=== PATIENT | female | born 2000 | race Caucasian/White ===

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

== ENCOUNTER 2022-01-04 17:19 | Outpatient (CLI) | payer OTHER, SELFPAY ==
[2022-01-04 17:28] VITALS: BMI 33.0
[2022-01-04 18:21] LABS: Microscopic, Urine URINE MICROSCOPIC (MICROSCOPIC)
[2022-01-04 18:28] LABS: Appearance,Urine SL CLOUDY (Clear); Bilirubin,Urine Negative (Negative); Blood, Urine Negative (Negative); Color,Urine YELLOW (Yellow); Glucose,Urine (UA) Negative (Negative); Ketones,Urine Negative (Negative); Leukocyte Esterase,Urine Negative (Negative); Nitrate,Urine Negative (Negative); Protein,Urine Negative (Negative); Specific Gravity, Urine 1.025 (1.005-1.030); Urobilinogen,Urine 0.2 EU/dl (0.2)
[2022-01-04 18:39] LABS: Amphetamine/Metha Screen,Urine Negative ng/ml (<1000); Barbiturates Screen,Urine Negative ng/ml (<200)
[2022-01-04 18:40] LABS: Benzodiazepines Screen,Urine Negative ng/ml (<200)
[2022-01-04 18:41] LABS: Cannabinoid Screen,Urine Negative ng/ml (<50); Cocaine Screen,Urine Negative ng/ml (<300)
[2022-01-04 18:42] LABS: Methadone Screen,Urine Negative ng/ml (<300); Opiate Screen,Urine Negative ng/ml (<300)
[2022-01-04 18:43] LABS: Phencyclidine Screen,Urine Negative ng/ml (<25)
[2022-01-04 18:44] LABS: Amorphous Sediment,Urine 1+ /lpf; Bacteria,Urine 1+ /lpf; Squamous Epithelial Cell,Urine Occasional #/hpf (0-5)
== END 2022-01-04 18:25 | disposition home or self-care (01) ==
LOC: OBOUT 17:22 → OB 17:23
PROVIDERS: PCP Internal Medicine Adolescent Medicine; Visit Provider Obstetrics & Gynecology
DX: O36.8130 Decreased fetal movements, third trimester, not applicable or unspecified (principal); Z3A.28 28 weeks gestation of pregnancy
CPT/HCPCS: 80305; 81001

== ENCOUNTER → 2022-01-12 09:46 | Outpatient (CLI) | payer OTHER, SELFPAY ==
[2022-01-12 10:39] LABS: Glucose,Fasting 80 mg/dl (74-100)
[2022-01-12 12:02] LABS: Glucose 1 Hour 102 mg/dL (74-100)
== END ==
PROVIDERS: Visit Provider Nurse Practitioner Obstetrics & Gynecology
DX: Z34.90 Encounter for supervision of normal pregnancy, unspecified, unspecified trimester (principal)
CPT/HCPCS: 36415; 82951

== ENCOUNTER → 2022-02-02 09:12 | Outpatient (CLI) | payer OTHER, SELFPAY ==
--- NOTE | 2022-02-02 09:12 | US_ITS ---
FINAL REPORT CLINICAL HISTORY: decreased movement FINDINGS: There is a single live intrauterine gestation. Presentation is cephalic. Placenta is anterior, grade 1-2. breathing and movement is noted. Heart rate is 133 beats per minute. AMNIOTIC FLUID: Appropriate amount. YVONNE: 9.78 cm MEASUREMENTS: ULTRASOUND AGE: 33 weeks 3 days. GESTATION AGE: 32 weeks 3 days. ESTIMATED WEIGHT: 2100g. GROWTH PERCENTILE: 59% BPD: 8.5 cm corresponding with 34 weeks 1 days. OFD: 10.8 cm corresponding with 34 weeks 4 days. HC: 30.5 cm corresponding with 34 weeks 0 days. AC: 29.2 cm corresponding with 33 weeks 2 days. FL: 6.2 cm corresponding with 32 weeks 1 days. HC/AC: 1.04 CI: 78% FL/BPD: 73% FL/AC: 21% Biophysical profile: Breathin/2 Movement: 2/2 Tone: 2/2 Fluid volume: 2/2 Total: 04/03 IMPRESSION: Single living IUP with an ultrasound age of 33 weeks 3 days. YVONNE of 9.78 cm biophysical profile: 04/03 Reviewed, Interpreted and Dictated by Michael Mcgee III, MD Transcribed by Eileen Ruiz Authenticated and . [facility]
== END ==
LOC: RAD 09:12
PROVIDERS: PCP Internal Medicine Adolescent Medicine; Visit Provider Nurse Practitioner Obstetrics & Gynecology
DX: O36.8190 Decreased fetal movements, unspecified trimester, not applicable or unspecified (principal); O36.5990 Maternal care for other known or suspected poor fetal growth, unspecified trimester, not applicable or unspecified
CPT/HCPCS: 76816; 76819; 76820

== ENCOUNTER → 2022-02-07 16:57 | Outpatient (CLI) | payer OTHER, SELFPAY | PROVIDERS: Visit Provider Nurse Practitioner Obstetrics & Gynecology | DX: O23.40 Unspecified infection of urinary tract in pregnancy, unspecified trimester (principal); Z3A.34 34 weeks gestation of pregnancy | CPT/HCPCS: 87086 ==

== ENCOUNTER → 2022-03-02 06:03 | Outpatient (CLI) | payer OTHER, SELFPAY | PROVIDERS: Visit Provider Obstetrics & Gynecology | DX: Z34.90 Encounter for supervision of normal pregnancy, unspecified, unspecified trimester (principal) | CPT/HCPCS: 86403 ==

== ENCOUNTER 2022-03-15 09:34 | Observation (INO) | payer OTHER, SELFPAY ==
[2022-03-15] VITALS (12 sets, daily range): BP systolic 111–146; BP diastolic 60–87; PULSE 72–105; RESP 16–17; TEMP 36.6–36.8; O2SAT 100; BMI 35.0
[2022-03-15 10:24] LABS: Microscopic, Urine URINE MICROSCOPIC (MICROSCOPIC)
[2022-03-15 10:24] LABS: Coronavirus 19, PCR Not Detected (NotDetected); Influenza A, PCR Not Detected (NotDetected); Influenza B, PCR Not Detected (NotDetected)
[2022-03-15 10:26] LABS: Appearance,Urine CLEAR (Clear); Bilirubin,Urine Negative (Negative); Blood, Urine Negative (Negative); Color,Urine YELLOW (Yellow); Glucose,Urine (UA) Negative (Negative); Ketones,Urine Negative (Negative); Leukocyte Esterase,Urine TRACE (Negative); Nitrate,Urine Negative (Negative); PH,Urine 7.5 (5.0-8.5); Protein,Urine Negative (Negative); Specific Gravity, Urine <= 1.005 (1.005-1.030); Urobilinogen,Urine 0.2 EU/dl (0.2)
[2022-03-15 10:43] LABS: Basophils % 0.1 % (0.1-2.0); Eosinophils # 0.2 K/mm3 (0.0-0.4); Eosinophils % 1.7 % (0.1-12.0); Hematocrit 28.7 % (37.0-47.0); Hemoglobin 9.8 g/dL (12.2-16.2); Lymphocytes % 17.6 % (10-50); Mean Corpuscular HGB Conc 34.2 g/dL (31.8-35.4); Mean Corpuscular Hemoglobin 24.7 pg (27.0-31.2); Mean Corpuscular Volume 72.3 fl (81-99); Mean Platelet Volume 7.6 fl (7.4-10.4); Monocytes # 0.7 K/mm3 (0.1-1.0); Monocytes % 5.8 % (1.7-9.3); Neutrophils # 8.4 K/mm3 (1.8-7.8); Neutrophils % 74.7 % (37.0-80.0); Platelet Count 249 K/mm3 (142-424); Red Blood Count 3.96 M/mm3 (4.20-5.40); Red Cell Distribution Width 12.9 % (11.5-17.5); White Blood Count 11.3 K/mm3 (4.5-13.0)
[2022-03-15 10:44] LABS: Squamous Epithelial Cell,Urine Occasional #/hpf (0-5)
[2022-03-15 11:02] LABS: Benzodiazepines Screen,Urine Negative ng/ml (<200)
[2022-03-15 11:02] LABS: Alanine Aminotransferase 13 U/L (12-78); Aspartate Amino Transferase 20 U/L (14-36); Blood Urea Nitrogen 6 mg/dl (7-17); Calcium 8.6 mg/dl (8.4-10.2); Carbon Dioxide 20 mmol/L (22.0-30.0); Chloride 110 mmol/L (98-107); Creatinine Clearance Estimated 352 mL/min (50-200); Estimated Glomerular Filt Rate 206 ml/min (>60); GFR (African American) 249 ML/MIN (>60); Glucose 80 mg/dl (74-100); Sodium 134 mmol/L (136-145)
[2022-03-15 11:03] LABS: D-Dimer 1.11 ug/mL (0.0-0.5)
[2022-03-15 11:03] LABS: Amphetamine/Metha Screen,Urine Negative ng/ml (<1000); Barbiturates Screen,Urine Negative ng/ml (<200)
[2022-03-15 11:04] LABS: Cannabinoid Screen,Urine Negative ng/ml (<50); Cocaine Screen,Urine Negative ng/ml (<300)
[2022-03-15 11:05] LABS: Methadone Screen,Urine Negative ng/ml (<300)
[2022-03-15 11:06] LABS: Opiate Screen,Urine Negative ng/ml (<300); Phencyclidine Screen,Urine Negative ng/ml (<25)
--- NOTE | 2022-03-15 11:53 | HMH.OBAPHP ---
OB - H&P: HPI Antepartum - History of Present Illness Chief complaint: Mild headache, increased blood pressure History of present illness: She is a 21-year-old 1 now para 0 who is 38 weeks gestational age. She complains of a mild headache. Her blood pressure is elevated here in the office. She did have proteinuria on the dip. - History of Present Criteria for establishing EDC:: based on 1st trimester US only care: good care Ultrasounds: normal 1st trimester US, normal mid trimester US Obstetrical complications: gestational hypertension Medical complications: none - Labs Blood type: O (+) positive Rubella: immune RPR/VDRL: nonreactive GBS status: negative HBsAG: negative HM[facility] History I have reviewed the patient's past medical history: Yes *Have you ever received a pneumonia vaccine?: No *Have you received a flu vaccine this season?: No Other Surgeries: Yes: No Previous Surgery. No: Amputation: No Fractures: No - *Social History Smoking Status: Never smoker Alcohol Intake: never Alcohol Intake Frequency:: other Substance Use Type: denies use *Occupational Status:: employed *Travel in the last 8 weeks: None Family Hx:: No significant family history Para: 0 Review of Systems - Review of Systems Review of systems:: pertinent systems reviewed and negative unless documented below Meds Home Medications Medication Instructions Recorded Confirmed Type PNV 153-FA 400 mcg-om3 35 mg-dha 1 tab PO DAILY 90 Days #90 tab 08/16/21 03/15/22 Rx 25 mg-epa 5 mg-fish oil chew tablet polyethylene glycol 3350 17 17 g PO DAILY #238 g 08/16/21 03/15/22 Rx gram/dose oral powder ferrous gluconate 324 mg (37.5 mg 324 mg PO DAILY #30 tab 12/06/21 03/15/22 Rx iron) tablet ondansetron HCl 8 mg tablet 8 mg PO tab 01/16/22 03/15/22 History azithromycin 500 mg tablet 1,000 mg PO ONCE #2 tab 03/13/22 03/15/22 Rx Allergies Allergy/AdvReac Type Severity Reaction Status Date / Time No Known Allergies Allergy Verified 03/15/22 08:49 OB - H&P: Exam - Physical Exam Vital signs: Temp Pulse Resp BP Pulse Ox 98.0 F 87 16 132/76 100 03/15/22 10:00 03/15/22 10:00 03/15/22 10:00 03/15/22 10:00 03/15/22 10:00 - Constitutional no acute distress - Routine HEENT Exam Head: Present: normocephalic Eye: Present: EOMI, PERRL ENT: Present: mucous membranes moist - Routine Neck Exam Present: supple, full ROM - Routine Respiratory Exam Absent: accessory muscle use (good air entry bilaterally), respiratory distress, wheezes, crackles - Routine Cardiovascular Exam Present: RRR. Absent: murmur - Routine Abdominal Exam Present: soft, normoactive bowel sounds. Absent: tenderness, distended, guarding - Routine Rectal Exam Patient deferred: visual exam, digital exam - Routine Exam Patient deferred: external exam, groin exam, perineal exam - Routine Extremities Exam Present: full ROM. Absent: cyanosis, edema - Routine Skin Exam Present: intact. Absent: cyanosis - Routine Neurological Exam Present: alert, oriented X3 - Routine Psychiatric Exam Present: normal affect OB - Results - Labs Labs: Short CBC 03/15/22 Range/Units 10:15 WBC 11.3 (4.5-13.0) K/mm3 Hgb 9.8 L (12.2-16.2) g/dL Hct 28.7 L (37.0-47.0) % Plt Count 249 (142-424) K/mm3 BMP 03/15/22 10:15 Sodium 134 L Potassium 4.0 Chloride 110 H Carbon Dioxide 20 L BUN 6 L Creatinine 0.40 L Glucose 80 Calcium 8.6 Liver Function 03/15/22 Range/Units 10:15 AST 20 (14-36) U/L ALT 13 (12-78) U/L Urine 03/15/22 Range/Units 09:45 Urine Color Yellow (Yellow) Urine Appearance Clear (Clear) Urine pH 7.5 (5.0-8.5) Ur Specific [place] <= 1.005 (1.005-1.030) Urine Protein Negative (Negative) Urine Glucose (UA) Negative (Negative) OB - A/P Antepartum (1) Gestational hypertension Status: Ac
[2022-03-15 12:18] LABS: Activated Partial Thrombo Time 25.7 seconds (22.8-30.6); Fibrinogen 574 mg/dL (229.9-363.5); INR 0.89 (0.9-1.1); Prothrombin Time 10.1 seconds (10.1-12.5)
[2022-03-15 21:57] LABS: Fetal Membrane Rupture (Rapid) Negative (Negative)
[2022-03-16 04:21] VITALS: BP 134/83
--- NOTE | 2022-03-16 07:07 | HMH.PHAINT ---
MEDICATION RECONCILIATION COMPLETED ON PATIENT USING EXTERNAL FILL HISTORY FROM PHARMACY. -LYN NEVILLE, JOSED
--- NOTE | 2022-03-16 09:34 | HMH.DCSUM ---
General - General Admission date:: 03/15/22 Discharge date: 03/16/22 HPI HPI: She is admitted with increased blood pressure. Her blood pressure was elevated in the office. She is 38 weeks gestational age. Hospital Course Hospital Course: With bedrest her blood pressure settled. Her blood work was all normal. We are working on a 24-hour urine for her. She did have 1 spike in her blood pressure to 150s over 90s. She is asymptomatic. She has otherwise had blood pressures in the 120-130/60-80 range. We will go ahead and send her home and I have started her on labetalol 200 mg twice daily. I do suspect she has some labile hypertension. We will plan to deliver her at 39 weeks. She will come in in 3 days time for Cervidil and we will deliver her the next day. She will go home on bedrest. Her condition on discharge is stable and improved. Rhogam Administration: Not Indicated Objective Vital signs: Temp Pulse Resp BP Pulse Ox 97.9 F 77 17 134/83 100 03/15/22 19:59 03/15/22 22:31 03/15/22 19:59 03/16/22 04:21 03/15/22 19:59 no acute distress - *Routine HEENT Exam Head: Present: normocephalic Eye: Present: EOMI, PERRL ENT: Present: mucous membranes moist Results Labs on day of discharge: Labs from last 24 hours 03/15/22 03/15/22 03/15/22 21:33 10:15 10:15 WBC RBC Hgb Hct MCV MCH MCHC RDW Plt Count MPV Neut % (Auto) Lymph % (Auto) [place] % (Auto) Eos % (Auto) Baso % (Auto) Neut # (Auto) Lymph # (Auto) [place] # (Auto) Eos # (Auto) Baso # (Auto) PT INR APTT Fibrinogen D-Dimer Sodium Potassium Chloride Carbon Dioxide Anion Gap BUN Creatinine Estimated Creat Clear Estimated GFR Est GFR ( Amer) Glucose Uric Acid Calcium AST ALT Urine Color Urine Appearance Urine pH Ur Specific [place] Urine Protein Urine Glucose (UA) Urine Ketones Urine Blood Urine Nitrate Urine Bilirubin Urine Urobilinogen Ur Leukocyte Esterase Urine RBC Urine WBC Ur Squamous Epith Cells Urine Bacteria Membrane Rupture Negative Urine Opiates Screen Urine Methadone Screen Ur Barbituates Screen Ur Phencyclidine Scrn Ur Amphetamines Screen U Benzodiazepines Scrn Urine Cocaine Screen U Marijuana (THC) Screen SARS-CoV-2 (PCR) Not detected Influenza A Untype (PCR) Not detected Influenza Type B (PCR) Not detected Blood Type O Positive Antibody Screen Negative 03/15/22 03/15/22 03/15/22 10:15 10:15 10:15 WBC 11.3 RBC 3.96 L Hgb 9.8 L Hct 28.7 L MCV 72.3 L MCH 24.7 L MCHC 34.2 RDW 12.9 Plt Count 249 MPV 7.6 Neut % (Auto) 74.7 Lymph % (Auto) 17.6 [place] % (Auto) 5.8 Eos % (Auto) 1.7 Baso % (Auto) 0.1 Neut # (Auto) 8.4 H Lymph # (Auto) 2.0 [place] # (Auto) 0.7 Eos # (Auto) 0.2 Baso # (Auto) 0.0 PT 10.1 INR 0.89 L APTT 25.7 Fibrinogen 574 H D-Dimer 1.11 H Sodium 134 L Potassium 4.0 Chloride 110 H Carbon Dioxide 20 L Anion Gap 8.0 BUN 6 L Creatinine 0.40 L Estimated Creat Clear 352 H Estimated GFR 206 Est GFR ( Amer) 249 Glucose 80 Uric Acid 4.0 Calcium 8.6 AST 20 ALT 13 Urine Color Urine Appearance Urine pH Ur Specific [place] Urine Protein Urine Glucose (UA) Urine Ketones Urine Blood Urine Nitrate Urine Bilirubin Urine Urobilinogen Ur Leukocyte Esterase Urine RBC Urine WBC Ur Squamous Epith Cells Urine Bacteria Membrane Rupture Urine Opiates Screen Urine Methadone Screen Ur Barbituates Screen Ur Phencyclidine Scrn Ur Amphetamines Screen U Benzodiazepines Scrn Urine Cocaine Screen U Marijuana (THC) Screen SARS-CoV-2 (PCR) In
== END 2022-03-16 10:40 | disposition home or self-care (01) ==
LOC: OBOUT 09:34 → OB 09:40
PROVIDERS: Obstetrics & Gynecology; Admitting Provider Nurse Practitioner Obstetrics & Gynecology; PCP Internal Medicine Adolescent Medicine; Visit Provider Nurse Practitioner Obstetrics & Gynecology
DX: O13.3 Gestational [pregnancy-induced] hypertension without significant proteinuria, third trimester (principal); Z3A.38 38 weeks gestation of pregnancy; Z20.822 Contact with and (suspected) exposure to COVID-19
CPT/HCPCS: 59025; 80048; 80305; 81001; 84112; 84450; 84460; 84550; 85025; 85378; 85384; 85610; 85730; 86850; C9803; G0378; J2405; U0003; U0005

== ENCOUNTER → 2022-03-17 11:49 | Outpatient (CLI) | payer OTHER, SELFPAY ==
[2022-03-08 09:55] LABS: Fetal Membrane Rupture (Rapid) Negative (Negative)
[2022-03-17 13:05] LABS: Total Protein 24 Hour,Urine 462 mg/24 hr (40-90); Total Volume,Urine 1650 mL (600-1600)
== END ==
PROVIDERS: Nurse Practitioner Obstetrics & Gynecology; Visit Provider Obstetrics & Gynecology
DX: O42.913 Preterm premature rupture of membranes, unspecified as to length of time between rupture and onset of labor, third trimester (principal); O13.3 Gestational [pregnancy-induced] hypertension without significant proteinuria, third trimester; Z3A.39 39 weeks gestation of pregnancy
CPT/HCPCS: 84112; 84155

== ENCOUNTER 2022-03-19 16:08 | Inpatient (IN) | payer OTHER, SELFPAY ==
[2022-03-19 16:22] VITALS: BMI 34.9
[2022-03-19 17:18] LABS: Microscopic, Urine URINE MICROSCOPIC (MICROSCOPIC)
[2022-03-19 17:24] LABS: Basophils % 0.1 % (0.1-2.0); Eosinophils # 0.1 K/mm3 (0.0-0.4); Eosinophils % 0.7 % (0.1-12.0); Hematocrit 27.7 % (37.0-47.0); Hemoglobin 9.8 g/dL (12.2-16.2); Lymphocytes # 2.1 K/mm3 (0.7-4.5); Lymphocytes % 15.1 % (10-50); Mean Corpuscular HGB Conc 35.4 g/dL (31.8-35.4); Mean Corpuscular Hemoglobin 25.8 pg (27.0-31.2); Mean Corpuscular Volume 72.9 fl (81-99); Mean Platelet Volume 7.6 fl (7.4-10.4); Monocytes # 0.7 K/mm3 (0.1-1.0); Monocytes % 4.8 % (1.7-9.3); Neutrophils # 10.9 K/mm3 (1.8-7.8); Neutrophils % 79.3 % (37.0-80.0); Platelet Count 269 K/mm3 (142-424); Red Cell Distribution Width 13.2 % (11.5-17.5); White Blood Count 13.7 K/mm3 (4.5-13.0)
[2022-03-19 17:25] LABS: Appearance,Urine SL CLOUDY (Clear); Bilirubin,Urine Negative (Negative); Blood, Urine Negative (Negative); Color,Urine YELLOW (Yellow); Glucose,Urine (UA) Negative (Negative); Ketones,Urine Negative (Negative); Leukocyte Esterase,Urine Negative (Negative); Nitrate,Urine Negative (Negative); Protein,Urine TRACE (Negative); Urobilinogen,Urine 0.2 EU/dl (0.2)
[2022-03-19 17:31] LABS: Coronavirus 19, PCR Not Detected (NotDetected); Influenza A, PCR Not Detected (NotDetected); Influenza B, PCR Not Detected (NotDetected)
[2022-03-19 17:35] LABS: Bacteria,Urine Trace /lpf
[2022-03-19 17:36] LABS: Amphetamine/Metha Screen,Urine Negative ng/ml (<1000)
[2022-03-19 17:37] LABS: Barbiturates Screen,Urine Negative ng/ml (<200); Benzodiazepines Screen,Urine Negative ng/ml (<200)
[2022-03-19 17:38] LABS: Cannabinoid Screen,Urine Negative ng/ml (<50)
[2022-03-19 17:39] LABS: Cocaine Screen,Urine Negative ng/ml (<300); Methadone Screen,Urine Negative ng/ml (<300)
[2022-03-19 17:40] LABS: Opiate Screen,Urine Negative ng/ml (<300)
[2022-03-19 17:41] LABS: Phencyclidine Screen,Urine Negative ng/ml (<25)
[2022-03-19 17:45] LABS: Activated Partial Thrombo Time 24.8 seconds (22.8-30.6); Fibrinogen 574 mg/dL (229.9-363.5); INR 0.89 (0.9-1.1); Prothrombin Time 10.1 seconds (10.1-12.5)
[2022-03-19 17:47] VITALS: BMI 34.9
[2022-03-19 17:47] LABS: D-Dimer 1.21 ug/mL (0.0-0.5)
[2022-03-19 17:51] LABS: Anion Gap 11.8 mEq/L (5-15); Carbon Dioxide 20 mmol/L (22.0-30.0); Chloride 107 mmol/L (98-107); Potassium 3.8 mmoL/L (3.5-5.1); Sodium 135 mmol/L (136-145)
[2022-03-19 17:52] LABS: Alanine Aminotransferase 19 U/L (12-78); Aspartate Amino Transferase 23 U/L (14-36); Blood Urea Nitrogen 9 mg/dl (7-17); Calcium 9.1 mg/dl (8.4-10.2); Creatinine Clearance Estimated 234 mL/min (50-200); Estimated Glomerular Filt Rate 129 ml/min (>60); GFR (African American) 156 ML/MIN (>60); Glucose 104 mg/dl (74-100); Uric Acid 4.6 mg/dl (2.5-6.2)
[2022-03-19 17:53] VITALS: BP 140/85; PULSE 88; RESP 17; TEMP 36.8; O2SAT 100
--- NOTE | 2022-03-20 07:23 | HMH.PHAINT ---
MEDICATION RECONCILIATION COMPLETED ON PATIENT USING EXTERNAL FILL HISTORY FROM PHARMACY. -LYN NEVILLE, JOSED
--- NOTE | 2022-03-20 09:28 | HMH.LABNOT ---
Labor Note - Subjective: Date: 03/20/22 Time: 08:30 regular contraction - Objective: NST:: Reactive Cervical Dilation:: 2 Effacement:: 25% Station: -3 Membranes: intact - Fetus: Monitoring?: Yes monitoring type:: External - Assessment: Labor progressing?: Yes Cephalopelvic disproportion?: No Patient Problems: All Active Problems Gestational hypertension (Acute) (Acute) - Plan: Anesthesia for epidural?: No Continue to labor down?: Yes Plan for ?: No Continue to monitor?: Yes Start pushing?: No Comment:: She did not want to have her membranes ruptured at this point time. She is janet regularly. We will see how she does over the next few hours.
--- NOTE | 2022-03-20 10:55 | HMH.OBAPHP ---
OB - H&P: HPI Antepartum - History of Present Illness Chief complaint: Term , increased blood pressure History of present illness: She is a 21-year-old 1 para 0 at 39 weeks gestational age. She has had increased blood pressure and as result of that we have elected to induce her labor at term. - History of Present Criteria for establishing EDC:: LMP confirmed by 1st trimester US care: good care Ultrasounds: normal 1st trimester US, normal mid trimester US Obstetrical complications: gestational hypertension - Labs Blood type: O (+) positive Rubella: immune RPR/VDRL: nonreactive GBS status: negative HBsAG: negative HMH History I have reviewed the patient's past medical history: Yes *Have you ever received a pneumonia vaccine?: No *Have you received a flu vaccine this season?: No Other Surgeries: Yes: No Previous Surgery. No: Amputation: No Fractures: No - *Social History Smoking Status: Never smoker Alcohol Intake: never Alcohol Intake Frequency:: other Substance Use Type: denies use *Occupational Status:: employed *Travel in the last 8 weeks: None Family Hx:: No significant family history Para: 0 Review of Systems - Review of Systems Review of systems:: pertinent systems reviewed and negative unless documented below Meds Home Medications Medication Instructions Recorded Confirmed Type ondansetron HCl 8 mg tablet 8 mg PO TIDP PRN tab 01/16/22 03/19/22 History Pnv No.153/FA/Om3/Dha/Epa/Fish 1 tab PO DAILY 03/15/22 03/19/22 History [[facility] Gummies] polyethylene glycoL 3350 17 g PO DAILY 03/15/22 03/19/22 History [Polyethylene Glycol 3350] Ferrous Gluconate 324 mg PO BID #60 tab 03/16/22 03/19/22 Rx Labetalol HCl [Normodyne 100mg 200 mg PO BID 03/19/22 03/19/22 History tablet] Allergies Allergy/AdvReac Type Severity Reaction Status Date / Time No Known Allergies Allergy Verified 03/15/22 08:49 OB - H&P: Exam - Physical Exam Vital signs: Temp Pulse Resp BP Pulse Ox 98.2 F 88 17 140/85 100 03/19/22 17:53 03/19/22 17:53 03/19/22 17:53 03/19/22 17:53 03/19/22 17:53 - Constitutional no acute distress - Routine HEENT Exam Head: Present: normocephalic Eye: Present: EOMI, PERRL ENT: Present: mucous membranes moist - Routine Neck Exam Present: supple, full ROM - Routine Respiratory Exam Absent: accessory muscle use (good air entry bilaterally), respiratory distress, wheezes, crackles - Routine Cardiovascular Exam Present: RRR. Absent: murmur - Routine Abdominal Exam Present: soft, normoactive bowel sounds. Absent: tenderness, distended, guarding - Routine Rectal Exam Patient deferred: visual exam, digital exam - Routine Exam Patient deferred: external exam, groin exam, perineal exam - Routine Extremities Exam Present: full ROM. Absent: cyanosis, edema - Routine Skin Exam Present: intact. Absent: cyanosis - Routine Neurological Exam Present: alert, oriented X3 - Routine Psychiatric Exam Present: normal affect OB - Results - Labs Labs: Short CBC 03/19/22 Range/Units 16:40 WBC 13.7 H (4.5-13.0) K/mm3 Hgb 9.8 L (12.2-16.2) g/dL Hct 27.7 L (37.0-47.0) % Plt Count 269 (142-424) K/mm3 BMP 03/19/22 16:40 Sodium 135 L Potassium 3.8 Chloride 107 Carbon Dioxide 20 L BUN 9 Creatinine 0.60 Glucose 104 H Calcium 9.1 Liver Function 03/19/22 Range/Units 16:40 AST 23 (14-36) U/L ALT 19 (12-78) U/L Urine 03/19/22 Range/Units 16:40 Urine Color Yellow (Yellow) Urine Appearance Sl cloudy (Clear) Urine pH 7.0 (5.0-8.5) Ur Specific [place] 1.020 (1.005-1.030) Urine Protein Trace (Negative) Urine Glucose (UA) Negative (Negative) OB - A/P Antepartum (1) Intrauterine in teenager Status: Acute (2) Normal delivery at term Status: Acute (3) Gestational hypertension
[2022-03-20 11:39] LABS: Basophils % 0.1 % (0.1-2.0); Eosinophils # 0.2 K/mm3 (0.0-0.4); Eosinophils % 1.1 % (0.1-12.0); Hematocrit 30.1 % (37.0-47.0); Hemoglobin 10.4 g/dL (12.2-16.2); Lymphocytes # 1.8 K/mm3 (0.7-4.5); Lymphocytes % 13.1 % (10-50); Mean Corpuscular HGB Conc 34.5 g/dL (31.8-35.4); Mean Corpuscular Hemoglobin 24.6 pg (27.0-31.2); Mean Corpuscular Volume 71.3 fl (81-99); Mean Platelet Volume 7.4 fl (7.4-10.4); Monocytes # 0.6 K/mm3 (0.1-1.0); Monocytes % 4.5 % (1.7-9.3); Neutrophils # 11.1 K/mm3 (1.8-7.8); Neutrophils % 81.2 % (37.0-80.0); Platelet Count 260 K/mm3 (142-424); Red Blood Count 4.23 M/mm3 (4.20-5.40); Red Cell Distribution Width 13.4 % (11.5-17.5); White Blood Count 13.6 K/mm3 (4.5-13.0)
--- NOTE | 2022-03-20 11:45 | HMH.LABNOT ---
Labor Note - Subjective: Date: 03/20/22 Time: 11:45 regular contraction - Objective: NST:: Reactive Contractions:: every 4-5 minutes Cervical Dilation:: 2 Effacement:: 25% Station: -3 Membranes: intact - Fetus: Monitoring?: Yes monitoring type:: External - Assessment: Labor progressing?: No Cephalopelvic disproportion?: No Patient Problems: All Active Problems Gestational hypertension (Acute) Intrauterine in teenager (Acute) Normal delivery at term (Acute) (Acute) - Plan: Anesthesia for epidural?: No Continue to labor down?: Yes Plan for ?: No Continue to monitor?: Yes Start pushing?: No Comment:: Her cervix remains at 2 cm with the presenting part extremely high. She is having regular contractions but they are not uncomfortable yet. We will continue with the oxytocin.
[2022-03-20 11:47] LABS: Alanine Aminotransferase 15 U/L (12-78); Anion Gap 8.9 mEq/L (5-15); Aspartate Amino Transferase 23 U/L (14-36); Blood Urea Nitrogen 6 mg/dl (7-17); Calcium 8.9 mg/dl (8.4-10.2); Carbon Dioxide 21 mmol/L (22.0-30.0); Chloride 108 mmol/L (98-107); Creatinine Clearance Estimated 281 mL/min (50-200); Estimated Glomerular Filt Rate 159 ml/min (>60); GFR (African American) 192 ML/MIN (>60); Glucose 83 mg/dl (74-100); Potassium 3.9 mmoL/L (3.5-5.1); Sodium 134 mmol/L (136-145); Uric Acid 4.8 mg/dl (2.5-6.2)
[2022-03-20 12:04] LABS: D-Dimer 1.26 ug/mL (0.0-0.5)
[2022-03-20 12:16] LABS: Activated Partial Thrombo Time 25.5 seconds (22.8-30.6); Fibrinogen 610 mg/dL (229.9-363.5); INR 0.88 (0.9-1.1)
--- NOTE | 2022-03-20 15:09 | HMH.LABNOT ---
Labor Note - Subjective: Date: 03/20/22 Time: 13:45 regular contraction - Objective: NST:: Reactive Contractions:: every 2-3 minutes Cervical Dilation:: 2 Effacement:: 25% Station: -3 Membranes: intact - Fetus: Monitoring?: Yes monitoring type:: External - Assessment: Labor progressing?: No Cephalopelvic disproportion?: No Patient Problems: All Active Problems Gestational hypertension (Acute) Intrauterine in teenager (Acute) Normal delivery at term (Acute) (Acute) - Plan: Anesthesia for epidural?: No Continue to labor down?: Yes Plan for ?: No Continue to monitor?: Yes Start pushing?: No Comment:: I examined her and she really has not made any change at all. I told her that I would offer her to stop the pill later this evening and then restart it again tomorrow morning. Failing that we could go ahead and do a . She will let me know what she wants to do. I did not rupture membranes because I did not want her to sit for 24 hours with ruptured membranes. She has not made any progress.
--- NOTE | 2022-03-20 16:36 | HMH.ACPN2 ---
Internal Medicine - PN: Subj *Date: 03/20/22 *Time: 16:36 Interval history: After discussing the various options with her family she has decided to go ahead with a . She did not want to turn the pit off overnight and then started again tomorrow. She really has not changed her cervix and the baby is presenting part is extremely high. Exam Vital signs and Labs for Last 24 Hours: Temp Pulse Resp BP Pulse Ox 98.2 F 88 17 140/85 100 03/19/22 17:53 03/19/22 17:53 03/19/22 17:53 03/19/22 17:53 03/19/22 17:53 Laboratory Results - last 24 hr 03/19/22 16:40: Blood Type O Positive, Antibody Screen Negative 03/19/22 16:40: Urine Color Yellow, Urine Appearance Sl cloudy, Urine pH 7.0, Ur Specific [place] 1.020, Urine Protein Trace, Urine Glucose (UA) Negative, Urine Ketones Negative, Urine Blood Negative, Urine Nitrate Negative, Urine Bilirubin Negative, Urine Urobilinogen 0.2, Ur Leukocyte Esterase Negative, Urine RBC None, Urine WBC 3-5, Ur Squamous Epith Cells 10-20, Urine Bacteria Trace 03/19/22 16:40: Urine Opiates Screen Negative, Urine Methadone Screen Negative, Ur Barbituates Screen Negative, Ur Phencyclidine Scrn Negative, Ur Amphetamines Screen Negative, U Benzodiazepines Scrn Negative, Urine Cocaine Screen Negative, U Marijuana (THC) Screen Negative 03/19/22 16:40: WBC 13.7 H, RBC 3.80 L, Hgb 9.8 L, Hct 27.7 L, MCV 72.9 L, MCH 25.8 L, MCHC 35.4, RDW 13.2, Plt Count 269, MPV 7.6, Neut % (Auto) 79.3, Lymph % (Auto) 15.1, [place] % (Auto) 4.8, Eos % (Auto) 0.7, Baso % (Auto) 0.1, Neut # (Auto) 10.9 H, Lymph # (Auto) 2.1, [place] # (Auto) 0.7, Eos # (Auto) 0.1, Baso # (Auto) 0.0 03/19/22 16:40: PT 10.1, INR 0.89 L, APTT 24.8, Fibrinogen 574 H 03/19/22 16:40: D-Dimer 1.21 H, Sodium 135 L, Potassium 3.8, Chloride 107, Carbon Dioxide 20 L, Anion Gap 11.8, BUN 9, Creatinine 0.60, Estimated Creat Clear 234, Estimated GFR 129, Est GFR ( Amer) 156, Glucose 104 H, Uric Acid 4.6, Calcium 9.1, AST 23, ALT 19 03/19/22 16:55: SARS-CoV-2 (PCR) Not detected, Influenza A Untype (PCR) Not detected, Influenza Type B (PCR) Not detected 03/20/22 11:25: WBC 13.6 H, RBC 4.23, Hgb 10.4 L, Hct 30.1 L, MCV 71.3 L, MCH 24.6 L, MCHC 34.5, RDW 13.4, Plt Count 260, MPV 7.4, Neut % (Auto) 81.2 H, Lymph % (Auto) 13.1, [place] % (Auto) 4.5, Eos % (Auto) 1.1, Baso % (Auto) 0.1, Neut # (Auto) 11.1 H, Lymph # (Auto) 1.8, [place] # (Auto) 0.6, Eos # (Auto) 0.2, Baso # (Auto) 0.0 03/20/22 11:25: PT 10.0 L, INR 0.88 L, APTT 25.5, Fibrinogen 610 H 03/20/22 11:25: D-Dimer 1.26 H, Sodium 134 L, Potassium 3.9, Chloride 108 H, Carbon Dioxide 21 L, Anion Gap 8.9, BUN 6 L D, Creatinine 0.50 L, Estimated Creat Clear 281, Estimated GFR 159, Est GFR ( Amer) 192 D, Glucose 83 D, Uric Acid 4.8, Calcium 8.9, AST 23, ALT 15 I & O for Last 24 hours: Intake & Output 03/18/22 03/19/22 03/20/22 03/21/22 11:59 11:59 11:59 11:59 Weight 217 lb 0.016 oz - Constitutional no acute distress - *Routine HEENT Exam Head: Present: normocephalic Eye: Present: EOMI, PERRL ENT: Present: mucous membranes moist Assessment and Plan (1) Intrauterine in teenager Status: Acute Category: Medical Code(s): Z34.80 - Encounter for supervision of other normal , unspecified trimester (2) Normal delivery at term Status: Acute Category: Medical Code(s): O80 - Encounter for full-term uncomplicated delivery (3) Gestational hypertension Status: Acute Category: Medical Code(s): O13.9 - Gestational [-induced] hypertension without significant proteinuria, unspecified trimester (4) pelvic disproportion delivered Status: Acute Category: Medical Code(s): O33.9 - Maternal care for disproportion, unspecified (5) delivery delivered Status: Acute Category: Medical Code(s): O82 - Encounter for delivery without indication - Assessment and plan all Dx Assessment and Plan for all problems:: Given the f
[2022-03-20 18:45] VITALS: BP 127/78; PULSE 89; RESP 14; TEMP 36.5; O2SAT 100
--- NOTE | 2022-03-20 18:45 | HMH.OPNOTE ---
Date of procedure: 03/20/22 Pre-op Diagnosis:: Term , teenage , mild -induced hypertension, pelvic disproportion Post-op Diagnosis:: Term , teenage , -induced hypertension, pelvic disproportion Procedure performed:: Primary lower segment transverse section Surgeon:: Ronny De León MD Automatic Embroidery Machine Tender(s):: Dr. Hughes CARTON MAKER:: Jasson Nazario Anesthesia: spinal Estimated blood loss (mL): 600 Clinical Note:: She is a 21-year-old 1 para 0 at 39 weeks gestational age. She had increase in her blood pressure as well as proteinuria on a 24-hour urine. As result of that we induce her labor. She had Cervidil placed on the evening of March 19, 2022 and then was started on IV oxytocin on the morning of March 20, 2022. She really failed to progress beyond about 2 cm dilation and there was no changes in her cervix all day. The baby's head was also very high. It was not engaged in the pelvis. After having discussed the risks and benefits we elected perform a primary lower cervix transverse section. Operative findings:: She delivered a liveborn male child at 6:11 PM in the evening of March 20, 2022. Baby weighed 7 pounds 13 ounces. We do not have Apgars at the time of dictation. The baby was however vigorous and crying. Operative note:: She was taken to the operating room where spinal anesthesia was found be adequate. She was prepped and draped in normal sterile fashion in the supine position with a leftward tilt. A Cunningham catheter was in the bladder. A Pfannenstiel skin incision was made with knife then carried through to the underlying layer of fascia with cautery. The fascia was opened in the midline with cautery and extended laterally using Cisneros scissors. Ellis clamps were applied to the superior aspect of the fascial incision which was tented up and the underlying rectus muscles dissected off using cautery. The Brainerd clamps were then applied to the inferior aspect of the fascial incision which in a similar fashion was tented up and the underlying rectus muscles dissected off using cautery. The rectus muscles were then in the midline, the peritoneum identified, and entered sharply with Metzenbaum scissors. This incision was then extended superiorly and inferiorly with cautery. We had good visualization of the bladder inferiorly. The bladder peritoneum was then opened in the midline and extended laterally using Metzenbaum scissors. A bladder flap was created digitally. Transverse incision was made through the uterine muscle to the amnion. This incision was then extended laterally using fingers traction. The amnion was entered sharply with knife. There was clear amniotic fluid. The infant's head was then delivered atraumatically. This was followed by the anterior shoulder and the rest of the infant's body atraumatically. The oropharynx and nasopharynx were bulb suctioned. The cord was doubly clamped and cut. The infant was then handed off to Dr. Roberts who assigned Apgars which we are still waiting for. The baby was vigorous. We then obtained cord blood. Using gentle traction on the cord and countertraction on the fundus I was able to easily deliver the placenta intact. It had a normal three-vessel cord. The uterus was then cleared of clots and debris . An Coleman self-retaining retractor was then placed within the abdominal cavity. The uterine incision was then closed using running 0 Vicryl suture in a locked fashion. A second layer of the same suture was used to imbricate the first layer. The bladder peritoneum was then closed using running 2-0 Vicryl suture in a locked fashion. The gutters and cul-de-sac were then cleared of clots and debris . Once again hemostasis was assured. The peritoneum was grasped with Jessie clamps and closed using running 2-0 Vicryl suture. The rectus muscles were then reapproximated using running 0 Vicryl suture. The fascia was clos
--- NOTE | 2022-03-20 18:49 | P.PN_ITS ---
[facility] Anesthesia Checklist - Structural Data Admitted From: Inpatient Planned Operative Procedure/s: c/section Consent for Planned Operative Procedure(s) Verified: Yes - Airway Assessment C-Spine Mobility Assessed: Yes TMJ Mobility Assessed: Yes Dentition: Good Dentition - Neurological Assessment Level of Consciousness: Awake, Alert, Appropriate - Anesthesia Plan Anesthesia Risk discussed: Yes Anesthesia Plan: Verified ASA Class: II Anesthesia Type: Spinal [facility] History I have reviewed the patient's past medical history: Yes *Have you ever received a pneumonia vaccine?: No *Have you received a flu vaccine this season?: No Anesthesia experience/problems:: none Other Surgeries: Yes: No Previous Surgery. No: Amputation: No Fractures: No - *Social History Smoking Status: Never smoker Alcohol Intake: never Alcohol Intake Frequency:: other Substance Use Type: denies use *Occupational Status:: employed *Travel in the last 8 weeks: None Family Hx:: No significant family history Para: 0
--- NOTE | 2022-03-20 18:53 | P.PN_ITS ---
[facility] Anesthesia Record Part I Intake, IV Amount: 800 Estimated blood loss (mL): 600 Urine output (mL): 250 Blood Pressure: 118/50 SaO2: 100 Pulse Rate: 83 Respiratory Rate: 12 Temperature: 98 F Patient is:: Awake, Stable Stable to PACU at:: 18:45
[2022-03-20 18:54] VITALS: BP 118/50; PULSE 83; RESP 12; TEMP 36.6; O2SAT 100
[2022-03-20 18:55] VITALS: BP 134/76; PULSE 72; RESP 14; O2SAT 100
[2022-03-20 19:00] VITALS: RESP 14
[2022-03-20 19:05] VITALS: BP 128/72; PULSE 71; RESP 14; O2SAT 100
[2022-03-20 19:15] VITALS: BP 135/81; PULSE 70; RESP 14; TEMP 36.6; O2SAT 100
[2022-03-20 19:17] LABS: Microscopic,Cath URINE MICROSCOPIC (MICROSCOPIC)
[2022-03-20 21:01] LABS: Appearance,Urine/Cath CLEAR (Clear); Bilirubin,Cath Negative (Negative); Blood, Urine/Cath Negative (Negative); Color,Urine/Cath YELLOW (Yellow); Glucose,Urine/Cath (UA) Negative (Negative); Ketones,Urine/Cath Negative (Negative); Leukocyte Esterase,Cath Negative (Negative); Nitrate,Cath Negative (Negative); PH,Urine/Cath 7.5 (5.0-8.5); Protein,Urine/Cath Negative (Negative); Urobilinogen,Cath 0.2 EU/dl (0.2)
[2022-03-20 21:31] LABS: Squamous Epithelial Ur./Cath Occasional #/hpf (0-5); WBC,Urine/Cath Occasional #/hpf (0-3)
[2022-03-21 06:51] LABS: Hematocrit 25.8 % (37.0-47.0)
[2022-03-21 06:52] LABS: Hemoglobin 8.7 g/dL (12.2-16.2)
--- NOTE | 2022-03-21 07:21 | P.PN_ITS ---
[facility] Anesthesia Record Part II Discharge Time: 19:15 Destination: Obstetric PACU nurse assessment reviewed?: Yes Patient Condition:: Good Anesthesia Complications:: None Swallowing reflex intact?: Yes Cyanosis?: No Blood Pressure: 135/81 Pulse Rate: 70 Temperature: 97.8 F Mental Status: Alert & Oriented Pain level:: 0 Nausea and/or vomitting:: None Intake, IV Amount: 0
[2022-03-21 07:22] VITALS: BP 135/81; PULSE 70; TEMP 36.6
--- NOTE | 2022-03-21 08:22 | P.PN_ITS ---
Internal Medicine - PN: Subj *Date: 03/21/22 *Time: 08:22 Interval history: She is doing well this morning. She is 1 day post operative from a . Her hemoglobin is slightly low but she started low. She is asymptomatic. She is breast-feeding. Her incision is clean and dry. Exam Vital signs and Labs for Last 24 Hours: Temp Pulse Resp BP Pulse Ox 97.8 F 70 14 135/81 100 03/21/22 07:22 03/21/22 07:22 03/20/22 19:15 03/21/22 07:03/20/22 19:15 Laboratory Results - last 24 hr 03/20/22 11:25: WBC 13.6 H, RBC 4.23, Hgb 10.4 L, Hct 30.1 L, MCV 71.3 L, MCH 24.6 L, MCHC 34.5, RDW 13.4, Plt Count 260, MPV 7.4, Neut % (Auto) 81.2 H, Lymph % (Auto) 13.1, [place] % (Auto) 4.5, Eos % (Auto) 1.1, Baso % (Auto) 0.1, Neut # (Auto) 11.1 H, Lymph # (Auto) 1.8, [place] # (Auto) 0.6, Eos # (Auto) 0.2, Baso # (Auto) 0.0 03/20/22 11:25: PT 10.0 L, INR 0.88 L, APTT 25.5, Fibrinogen 610 H 03/20/22 11:25: D-Dimer 1.26 H, Sodium 134 L, Potassium 3.9, Chloride 108 H, Carbon Dioxide 21 L, Anion Gap 8.9, BUN 6 L D, Creatinine 0.50 L, Estimated Creat Clear 281, Estimated GFR 159, Est GFR ( Amer) 192 D, Glucose 83 D , Uric Acid 4.8, Calcium 8.9, AST 23, ALT 15 03/20/22 18:00: Urine Color Yellow, Urine Appearance Clear, Urine pH 7.5, Ur Specific Henderson 1.010, Urine Protein Negative, Urine Glucose (UA) Negative, Urine Ketones Negative, Urine Blood Negative, Urine Nitrate Negative, Urine Bilirubin Negative, Urine Urobilinogen 0.2, Ur Leukocyte Esterase Negative, Urine RBC None, Urine WBC Occasional, Ur Squamous Epith Cells Occasional, Urine Bacteria None 03/21/22 06:34: Hgb 8.7 L D, Hct 25.8 L I & O for Last 24 hours: Intake & Output 03/18/22 03/19/22 03/20/22 03/21/22 11:59 11:59 11:59 11:59 Intake Total 800 / 800 Balance 800 / 800 Weight 217 lb 0.016 oz - Constitutional no acute distress - *Routine HEENT Exam Head: Present: normocephalic Eye: Present: EOMI, PERRL ENT: Present: mucous membranes moist - *Routine Abdominal Exam Present: soft, normoactive bowel sounds. Absent: tenderness Comments: Incision is clean and dry Assessment and Plan (1) Intrauterine in teenager Status: Acute Category: Medical Code(s): Z34.80 - Encounter for supervision of other normal , unspecified trimester (2) Normal delivery at term Status: Acute Category: Medical Code(s): O80 - Encounter for full-term uncomplicated delivery (3) Gestational hypertension Status: Acute Category: Medical Code(s): O13.9 - Gestational [- induced] hypertension without significant proteinuria, unspecified trimester (4) pelvic disproportion delivered Status: Acute Category: Medical Code(s): O33.9 - Maternal care for disproportion, unspecified (5) delivery delivered Status: Acute Category: Medical Code(s): O82 - Encounter for delivery without indication (6) Anemia during , delivered, current hospitalization Status: Acute Category: Medical Code(s): O99.02 - Anemia complicating childbirth - Assessment and plan all Dx Assessment and Plan for all problems:: She is doing well. She is breast-feeding. Her incision is clean and dry. She is ambulating. Her pain is reasonably well controlled. We will plan to send her home tomorrow if she is doing well.
[2022-03-22 07:34] VITALS: BP 137/84; PULSE 86; RESP 18; TEMP 36.6; O2SAT 100
--- NOTE | 2022-03-22 09:14 | HMH.OBDCSM ---
General - General Admission date:: 03/19/22 Discharge date: 03/22/22 HPI - History of Present Illness History of present illness: She is a 21-year-old 1 para 0 at 39 weeks gestational age. She had increased blood pressure and as result of that we elected to induce her labor at term. Hospital Course Hospital Course: She had Cervidil placed and the following morning was started on IV oxytocin. She really failed to progress beyond 2 cm. The baby's head was not engaged in the pelvis. After having discussed the risks and benefits she elected to go ahead with a section for pelvic disproportion. She delivered a liveborn male child at 6:11 PM in the evening of March 20, 2022. The baby weighed 7 pounds 13 ounces. She has done well postoperatively and has remained afebrile throughout her hospitalization. She is eating and drinking and ambulating. She is breast-feeding. Her lochia is normal. She had a T AP block and her pain is well controlled. Her blood pressures have remained normal throughout her hospitalization. She is taking labetalol 200 twice daily and she will continue this at home. She has O+ blood, she is rubella immune and was group B streptococcus negative. Her trimmer operator Dr. Patton. She will be discharged home to follow-up with me in approximately 2 weeks time. She will continue with her vitamins and iron. She was given the usual instructions with respect to limiting her activity, driving and sexual activity. She was given instructions with respect to wound care. Her condition on discharge is stable and improved. Rhogam Administration: Not Indicated Objective Vital signs: Temp Pulse Resp BP Pulse Ox 97.8 F 70 14 135/81 100 03/21/22 07:22 03/21/22 07:22 03/20/22 19:15 03/21/22 07:03/20/22 19:15 no acute distress - *Routine HEENT Exam Head: Present: normocephalic Eye: Present: EOMI, PERRL ENT: Present: mucous membranes moist - *Routine Abdominal Exam Present: soft, normoactive bowel sounds. Absent: tenderness DS: Diagnosis - Discharge Diagnosis (1) Intrauterine in teenager Status: Acute (2) Normal delivery at term Status: Acute (3) Gestational hypertension Status: Acute (4) pelvic disproportion delivered Status: Acute (5) delivery delivered Status: Acute (6) Anemia during , delivered, current hospitalization Status: Acute Discharge Plan - Patient Discharge Instructions ACTIVITY: No heavy lifting DIET: continue same diet Additional Instructions: Nothing in the vagina for 6 weeks No tub baths No heavy lifting Patient Instructions: Depression, Hemorrhage, DI for , DI for Pre-eclampsia, [facility] Post Discharge Instructions, Preventing the Spread of Coronavirus Discharge Instructions - Follow up Plan Follow up with: Ronny De León MD [Staff Physician] - Disposition: Home, Self-Care Condition at discharge:: Stable Home Medications: Home Medications Medication Instructions Recorded Confirmed Type ondansetron HCl 8 mg tablet 8 mg PO TIDP PRN tab 01/16/22 03/19/22 History Pnv No.153/FA/Om3/Dha/Epa/Fish 1 tab PO DAILY 03/15/22 03/19/22 History [[facility] Gummies] polyethylene glycoL 3350 17 g PO DAILY 03/15/22 03/19/22 History [Polyethylene Glycol 3350] Labetalol HCl [Normodyne 100mg 200 mg PO BID 03/19/22 03/19/22 History tablet] Ferrous Gluconate 324 mg PO BID #60 tab 03/22/22 Rx Oxycodone HCl/Acetaminophen 1 tab PO Q4-6H PRN #12 tablet 03/22/22 Rx [Percocet 5/325mg tablet] Prescriptions/Medication Reconciliation: New Oxycodone HCl/Acetaminophen [Percocet 5/325mg tablet] 1 tab PO Q4-6H PRN #12 tablet PRN Reason: Severe Pain Continued ondansetron HCl 8 mg tablet 8 mg PO TIDP PRN tab PRN Reason: Nausea And Vomiting polyethylene glycoL 3350 [Polyethylene Glycol 3350] 17
--- NOTE | 2022-03-22 09:38 | SW/DCPLANNER ---
I received referral regarding need of teen for this patient. Patient delivered infant male (Dayne Montague) on 03/20/2022. Infant's father (Kofi Montague) is involved per patient and was present at time of my visit. Patient, Kofi Kirby's other son (two years old) and will reside at [address] [place] [address] in [place] [address]. Patient's contact number is [phone]. Patient is established with [facility] and is interested in HANDS program. I will reach out to [facility] for HANDS referral on this patient. Patient stated that she has the following items at home: crib, carseat, clothing, diapers and bottle feeding. Patient is expected to discharge home later today 03/22/22. Patient has no further needs at this time.
== END 2022-03-22 13:51 | disposition home or self-care (01) | DRG 788 ==
PROVIDERS: Admitting Provider Obstetrics & Gynecology; PCP Internal Medicine Adolescent Medicine; Visit Provider Nurse Practitioner Obstetrics & Gynecology
PROC: 10D00Z1 Extraction of Products of Conception, Low, Open Approach (ICD-10-PCS; CPT 59514; principal; 2022-03-20 18:00)
DX: O14.04 Mild to moderate pre-eclampsia, complicating childbirth (principal); O64.8XX0 Obstructed labor due to other malposition and malpresentation, not applicable or unspecified; Z3A.39 39 weeks gestation of pregnancy; Z37.0 Single live birth
CPT/HCPCS: 59514; 36415; 59025; 80048; 80305; 81001; 84450; 84460; 84550; 85014; 85018; 85025; 85378; 85384; 85610; 85730; 86850; C9803; J2405; U0003; U0005

== ENCOUNTER 2024-04-18 15:42 | Outpatient (CLI) | payer OTHER, SELFPAY ==
[2024-04-18 16:51] LABS: HCG,Quantitative 32 mIU/ml (0-5.42)
== END 2024-04-18 23:59 | disposition home or self-care (01) ==
LOC: LAB 15:46
PROVIDERS: PCP Internal Medicine Adolescent Medicine; Visit Provider Obstetrics & Gynecology
DX: Z34.90 Encounter for supervision of normal pregnancy, unspecified, unspecified trimester (principal)
CPT/HCPCS: 36415; 84144; 84702

== ENCOUNTER 2024-05-02 11:26 | Outpatient (CLI) | payer OTHER, SELFPAY ==
[2024-05-02 15:06] LABS: HCG,Quantitative 11149 mIU/ml (0-5.42)
== END 2024-05-02 23:59 | disposition home or self-care (01) ==
LOC: LAB 11:27
PROVIDERS: Visit Provider Obstetrics & Gynecology
DX: Z34.90 Encounter for supervision of normal pregnancy, unspecified, unspecified trimester (principal)
CPT/HCPCS: 36415; 84702

== ENCOUNTER 2024-05-08 13:10 | Outpatient (CLI) | payer OTHER, SELFPAY | END 2024-05-08 23:59 | disposition home or self-care (01) | LOC: LAB.DROPOF 05-09 12:39 | PROVIDERS: PCP Obstetrics & Gynecology; Visit Provider Obstetrics & Gynecology | DX: Z36.89 Encounter for other specified antenatal screening (principal) | CPT/HCPCS: 87086; 87088; 87186 ==

== ENCOUNTER 2024-05-15 13:24 | Outpatient (CLI) | payer OTHER, SELFPAY ==
[2024-05-15 14:27] LABS: Basophils % 0.2 % (0.1-2.0); Eosinophils % 0.4 % (0.1-12.0); Hematocrit 39.1 % (37.0-47.0); Hemoglobin 12.6 g/dL (12.2-16.2); Lymphocytes % 17.5 % (10-50); Mean Corpuscular HGB Conc 32.3 g/dL (31.8-35.4); Mean Corpuscular Hemoglobin 26.8 pg (27.0-31.2); Mean Platelet Volume 7.5 fl (7.4-10.4); Monocytes # 0.6 K/mm3 (0.1-1.0); Monocytes % 5.3 % (1.7-9.3); Neutrophils # 8.6 K/mm3 (1.8-7.8); Neutrophils % 76.6 % (37.0-80.0); Platelet Count 305 K/mm3 (142-424); Red Blood Count 4.71 M/mm3 (4.20-5.40); Red Cell Distribution Width 14.6 % (11.5-17.5); White Blood Count 11.2 K/mm3 (4.8-10.8)
[2024-05-15 16:21] LABS: HIV (1&2) Antibody Rapid NONREACTIVE (NONREACTIVE)
[2024-05-17 07:12] LABS: HCV Ab Non Reactive (Non Reactive); Hepatitis B Surface Antigen Negative (Negative)
[2024-05-17 10:14] LABS: Rubella Antibodies, IgG 7.24 index (Immune >0.99)
[2024-05-17 12:14] LABS: Rapid Plasma Reagin Ab Titer Non Reactive titer (NonRea<1:1)
== END 2024-05-15 23:59 | disposition home or self-care (01) ==
LOC: LAB 13:25
PROVIDERS: PCP Internal Medicine Adolescent Medicine; Visit Provider Obstetrics & Gynecology
DX: Z36.89 Encounter for other specified antenatal screening (principal)
CPT/HCPCS: 36415; 85025; 86593; 86762; 86803; 86850; 87340; 87389

== ENCOUNTER 2024-06-23 07:47 | Emergency (ER) | payer OTHER, SELFPAY ==
[2024-06-23] VITALS (7 sets, daily range): BP systolic 124–150; BP diastolic 72–89; PULSE 72–104; RESP 16–18; TEMP 36.7–36.9; O2SAT 99–100; BMI 33.9
--- NOTE | 2024-06-23 08:04 | US_ITS ---
PROCEDURE INFORMATION: Exam: US , Transvaginal Exam date and time: 06/23/2024 8:31 AM Age: 24 years old Clinical indication: Lmp or gestational age (in weeks): 13w4d; Other: Vag bleeding; ; Additional info: Vaginal bleeding LABS AND CLINICAL REPORTS: Gestational age (Established): 12 w 5 d Estimated due date (Established): 12/31/2024 TECHNIQUE: Imaging protocol: Real-time transvaginal obstetrical ultrasound of the maternal pelvis with image documentation. Transvaginal imaging was used for better evaluation of the fetus, adnexa, and/or cervix. COMPARISON: US OB FOLLOW UP 02/02/2022 9:28 AM FINDINGS: Gestation: Intrauterine gestation. heart rate: 149 bpm Placenta: Anterior placenta. Venous lakes in the placenta are noted. BIOMETRY: Gestational age (AUA): 13 w 4 d Estimated due date (AUA): 12/25/2024 [place] rump length (CRL): 73.9 mm. EGA (CRL) is 13 w 4 d MATERNAL: Soft tissues: scar is noted. IMPRESSION: Single viable intrauterine gestation with estimated gestational age of 13 weeks 4 days, compared to 12 weeks 5 days by LMP.
[2024-06-23 08:12] LABS: Microscopic, Urine URINE MICROSCOPIC (MICROSCOPIC)
[2024-06-23 08:15] LABS: Basophils % 0.4 % (0.1-2.0); Eosinophils # 0.1 K/mm3 (0.0-0.4); Eosinophils % 1.1 % (0.1-12.0); Hematocrit 37.7 % (37.0-47.0); Hemoglobin 13.1 g/dL (12.2-16.2); Lymphocytes # 2.7 K/mm3 (0.7-4.5); Lymphocytes % 27.8 % (10-50); Mean Corpuscular HGB Conc 34.7 g/dL (31.8-35.4); Mean Corpuscular Hemoglobin 27.2 pg (27.0-31.2); Mean Corpuscular Volume 78.4 fl (81-99); Monocytes # 0.4 K/mm3 (0.1-1.0); Monocytes % 4.3 % (1.7-9.3); Neutrophils # 6.5 K/mm3 (1.8-7.8); Neutrophils % 66.3 % (37.0-80.0); Platelet Count 268 K/mm3 (142-424); Red Blood Count 4.81 M/mm3 (4.20-5.40); Red Cell Distribution Width 14.4 % (11.5-17.5); White Blood Count 9.8 K/mm3 (4.8-10.8)
--- NOTE | 2024-06-23 08:15 | PC.NURSE ---
BLOOD COLLECTED FOR TYPE AND SCREEN LAB AT BEDSIDE. PT PROVIDED WARM BLANKETS. CALL LIGHT WITHIN REACH
--- NOTE | 2024-06-23 08:15 | PC.NURSE ---
RADIOLOGY NOTIFIED OF TVUS
--- NOTE | 2024-06-23 08:18 | HMH.EDGENADL ---
Discharge Plan Disposition Patient Disposition: Home, Self-Care Condition: Good Prescriptions Prescriptions: No Action amlodipine 5 mg tablet 5 mg PO DAILY Classic 28 mg iron- 800 mcg tablet 1 tab PO DAILY Qty: 30 11RF metronidazole 0.75 % (37.5mg/5 gram) gel 1 appful vaginal HS 5 Days Qty: 70 0RF 28-800 mg-mcg tablet PO terconazole 0.8 % cream 1 appful vaginal HS 3 Days Qty: 20 0RF Referrals Follow up/Referrals: Provider,Referral, MD [Referring] - See instructions Activity Restrictions/Add. Instructions Additional Instructions/Restrictions: As discussed please follow-up with your FINISHING MACHINE OPERATOR in 48 hours for recheck of laboratory workup and potential ultrasound. Should your symptoms worsen please return to ED Clinical Impressions Clinical Impression: Vaginal bleeding before 22 weeks gestation Instructions Patient Instructions: DI for Vaginal Bleeding Print Language Print Language: Divehi Discharge ED Provider: Severo Johnson General Adult HPI General Chief complaint: Vaginal Bleeding Stated complaint: bleeding 14 weeks Time Seen by Provider: 06/23/24 07:51 Mode of Arrival: Ambulatory Source of Information: Patient Limitations: No Limitations Description of Symptoms (Recalled from ER Triage Doc. by RN): c/o bright red vaginal bleeding at 14 weeks , started when she woke up, states this is her second with no issues in the past. gasper any abd pain with bleeding with only wiping. History of Present Illness HPI narrative: 24yoF patient presents with a chief complaint of vaginal bleeding while . She reports that the bleeding started this morning and describes the amount as approximately a teaspoon. The patient denies experiencing any pain, clots, or other associated symptoms such as pain during urination, abdominal pain, nausea, vomiting, or fever. She has had an ultrasound with her OB and reports no issues thus far, with visualization of the baby and heart rate. This is her first , and she is currently 14 weeks . The patient has no known medical problems, no history of , and no surgeries to her abdomen. She denies any pain when her abdomen is palpated. The patient follows up with an OB at this facility. Related Data Home Medications ?Medication ?Instructions ?Recorded ?Confirmed amlodipine 5 mg tablet 5 mg PO DAILY 05/08/24 06/12/24 vit no.133-ferrous tab PO 06/12/24 06/12/24 fumarate 28 mg-folic acid 800 mcg tablet () Previous Rx's ?Medication ?Instructions ?Recorded vits no.126-ferrous fum 1 tab PO DAILY #30 tabs 05/08/24 28 mg iron-folic acid 800 mcg tablet (Classic ) metronidazole 0.75 % (37.5 mg/5 1 appful vaginal HS 5 days #70 06/03/24 gram) vaginal gel grams terconazole 0.8 % vaginal cream 1 appful vaginal HS 3 days #20 06/18/24 grams Allergies Allergy/AdvReac Type Severity Reaction Status Date / Time amoxicillin AdvReac Mild Hives Verified 06/12/24 12:56 [facility] Disclaimer: The information contained in this section may have been updated after the patient was seen, as this information can be updated by other users. Medical History Chlamydia infection affecting in first trimester History of induced hypertension Maternal obesity affecting , antepartum History of hypertension Surgical History History of delivery Family History Other No significant family history Social History Smoking Status: Never smoker alcohol intake: never substance use type: denies use current occupational status: employed Travel in the last 8 weeks: None Other Medical History Have you received the Flu Vaccine for this season: No Have you received the Pneumonia Vaccine: No ROS Obtained: Yes Systems reviewed as appropriate & no additional complaints except as documented Physical Exam General General appearance: alert and in no apparent distress Head Head exam: atraumatic and normocephalic Eye Eye exam: Present normal appearance and EOMI ENT ENT exam: Present normal exam Neck Neck exam: Present normal inspection Chest Chest inspection: Present normal inspection and symmetric chest wall rise Respiratory Respiratory exam: Present normal lung sounds bilaterally Cardiovascular Cardiovascular exam: Present regular rate, normal rhythm and normal heart sounds Abdominal Exam Abdominal exam: Present soft and normal bowel sounds; Absent distention, tenderness, guarding, rebound or rigidity Extremities Exam Extremities exam: Present normal inspection and full ROM; Absent tenderness Back Exam Back exam: Present normal inspection Neurological Exam Neurological exam: Present alert and oriented X3 Psychiatric Psychiatric exam: Present normal affect and normal mood Skin Skin exam: Present warm, dry, intact and normal color; Absent rash Medical Decision Making Medical Records Medical records reviewed: Yes I reviewed the patient's medical records. Screening: Per USPSTF and CDC recommendations, given the prevalence of disease in our region, it is our hospital?s policy to screen for HIV and viral Hepatitis for all patients aged 18 and over and those with ongoing risk factors. Adams Inquiry Pt receiving controlled substance: No Adams was queried for this patient: No Vital Signs: 06/23/24 07:48 06/23/24 07:55 06/23/24 08:00 Temperature 98.4 F Temperature Source Oral Pulse Rate 104 H 99 H Pulse Rate [Left Radial] 104 H Respiratory Rate 18 Blood Pressure 150/87 H 130/89 Blood Pressure [Right Arm] 150/87 H Blood Pressure Mean [Right Arm] 108 Blood Pressure Source [Right Arm] Automatic Cuff Blood Pressure Position [Right Arm] Sitting 02 Sat by Pulse Oximetry 100 99 99 Oxygen Delivery Method Room Air Room Air Room Air 06/23/24 09:30 06/23/24 10:00 06/23/24 10:30 Temperature Temperature Source Pulse Rate 72 78 72 Pulse Rate [Left Radial] Respiratory Rate Blood Pressure 124/78 134/83 124/72 Blood Pressure [Right Arm] Blood Pressure Mean [Right Arm] Blood Pressure Source [Right Arm] Blood Pressure Position [Right Arm] 02 Sat by Pulse Oximetry 100 100 99 Oxygen Delivery Method Room Air Room Air Room Air Lab Data Lab Results 06/23/24 07:54: Urine Color Yellow, Urine Appearance Clear, Urine pH 6.5, Ur Specific [place] 1.025, Urine Protein Negative, Urine Glucose (UA) Negative, Urine Ketones Negative, Urine Blood 3+ A, Urine Nitrate Negative, Urine Bilirubin Negative, Urine Urobilinogen 0.2, Ur Leukocyte Esterase Negative, Urine RBC 10-20, Urine WBC 5-10, Ur Squamous Epith Cells 20-50, Urine Bacteria Trace 06/23/24 07:58: WBC 9.8, RBC 4.81, Hgb 13.1, Hct 37.7, MCV 78.4 L, MCH 27.2, MCHC 34.7, RDW 14.4, Plt Count 268, MPV 7.0 L, Neut % (Auto) 66.3, Lymph % (Auto) 27.8, [place] % (Auto) 4.3, Eos % (Auto) 1.1, Baso % (Auto) 0.4, Neut # (Auto) 6.5, Lymph # (Auto) 2.7, [place] # (Auto) 0.4, Eos # (Auto) 0.1, Baso # (Auto) 0.0, Sodium 135 L, Potassium 3.7, Chloride 107, Carbon Dioxide 18 L, Anion Gap 13.7, BUN 7, Creatinine 0.60, Estimated Creat Clear 221, Estimated GFR 125, Est GFR ( Amer) 151, Glucose 103 H, Calcium 8.7, Total Bilirubin 0.5, AST 23, ALT 22, Alkaline Phosphatase 62, Total Protein 7.1, Albumin 3.8, Globulin 3.3 H, Albumin/Globulin Ratio 1.2, Serum HCG, Qual Positive, HIV 1&2 Antibody Rapid Nonreactive 06/23/24 08:18: Blood Type O Positive 06/23/24 : HCG, Quant [id number] H 06/23/24 07:58 06/23/24 07:58 Orders (Tests/Meds): ORDERS Category Date Time Status ABO/RH Type Stat BBK 06/23/24 08:18 Completed Beta HCG, Quant [HCG,Quantitative] Stat Lab 06/23/24 Completed CBC w/Auto Diff [Complete Blood Count Auto Diff] Stat Lab 06/23/24 07:58 Completed CMP [Comprehensive Metabolic Panel] Stat Lab 06/23/24 07:58 Completed HCG Qualitative, Serum Stat Lab 06/23/24 07:58 Completed HIV (1&2) Antibody Rapid Stat Lab 06/23/24 07:58 Completed Hep C Ab with Reflex to RNA Stat Lab 06/23/24 07:58 Received Urinalysis and Microscopic Stat Lab 06/23/24 07:54 Completed US OB transvaginal Stat Ultrasound 06/23/24 08:04 Completed Medical Decision Narrative: Patient with history and exam per above presenting for evaluation of vaginal bleeding well 14 weeks Diagnoses considered include , UTI, threatened , anemia ED workup and treatment included: As above Labs were independently interpreted by me, significant for no noted anemia, no noted leukocytosis. Blood type O+, does not require RhoGAM. Beta quant 63,000, no actionable electrolyte abnormalities, CBC, CMP grossly nonactionable. No noted UTI, there is blood noted in urinalysis however this may be contamination from vaginal bleeding. Imaging was independently visualized and interpreted by me, significant for Ultrasound significant for viable intrauterine gestation, no noted abnormalities on my review Please refer to radiology report for full details. My clinical impression at this time is most consistent with vaginal bleeding in setting of . On reassessment patient remains hemodynamically stable. At this time medically cleared for discharge with outpatient follow-up. Patient is to call her FINISHING MACHINE OPERATOR doctor today or tomorrow morning to arrange for recheck of beta-hCG and potential ultrasound in 48 hours. Patient agreeable with this plan. Given strict instructions to return to ED if symptoms worsen. Discharged home with hemodynamically stable vitals. I discussed my clinical impression with patient and answered all questions. At this time, the evidence for any other entities in the differential is insufficient to warrant any further testing or ED observation. This was explained to the patient. The patient was advised that persistent or worsening symptoms require further evaluation. Critical Care Critical Care Time Critical Care Time: No
--- NOTE | 2024-06-23 08:20 | PC.NURSE ---
PT TO US
[2024-06-23 08:26] LABS: Appearance,Urine CLEAR (Clear); Bilirubin,Urine Negative (Negative); Blood, Urine 3+ (Negative); Color,Urine YELLOW (Yellow); Glucose,Urine (UA) Negative (Negative); Ketones,Urine Negative (Negative); Leukocyte Esterase,Urine Negative (Negative); Nitrate,Urine Negative (Negative); PH,Urine 6.5 (5.0-8.5); Protein,Urine Negative (Negative); Specific Gravity, Urine 1.025 (1.005-1.030); Urobilinogen,Urine 0.2 EU/dl (0.2)
[2024-06-23 08:39] LABS: Albumin Level 3.8 g/dl (3.5-5.0); Chloride 107 mmol/L (98-107); HCG Qualitative, Serum Positive (Negative); Sodium 135 mmol/L (136-145)
[2024-06-23 08:40] LABS: Potassium 3.7 mmoL/L (3.5-5.1)
[2024-06-23 08:42] LABS: Alanine Aminotransferase 22 U/L (12-78); Albumin/Globulin Ratio 1.2 (1.1-1.8); Alkaline Phosphatase 62 U/L (38-126); Anion Gap 13.7 mEq/L (5-15); Aspartate Amino Transferase 23 U/L (14-36); Bilirubin,Total 0.5 mg/dl (0.2-1.3); Blood Urea Nitrogen 7 mg/dl (7-17); Carbon Dioxide 18 mmol/L (22.0-30.0); Creatinine Clearance Estimated 221 mL/min (50-200); Estimated Glomerular Filt Rate 125 ml/min (>60); GFR (African American) 151 ML/MIN (>60); Globulin 3.3 g/dL (1.3-3.2); Total Protein,Serum 7.1 g/dl (6.3-8.2)
[2024-06-23 08:43] LABS: Calcium 8.7 mg/dl (8.4-10.2); Glucose 103 mg/dl (74-100)
[2024-06-23 09:11] LABS: Bacteria,Urine Trace /lpf; Squamous Epithelial Cell,Urine 20-50 #/hpf (0-5)
--- NOTE | 2024-06-23 09:28 | PC.NURSE ---
DR OMER NOTIFIED OF TVUS, WILL SPEAK WITH RADIOLOGY TO BE READ
--- NOTE | 2024-06-23 10:00 | PC.NURSE ---
ROUNDED ON PT, UPDATED ON POC. NO NEEDS AT THIS TIME. CALL LIGHT IN REACH
[2024-06-23 10:28] LABS: HCG,Quantitative 63620 mIU/ml (0-5.42)
[2024-06-23 10:32] LABS: HIV (1&2) Antibody Rapid NONREACTIVE (NONREACTIVE)
--- NOTE | 2024-06-23 10:55 | PC.NURSE ---
DR CEDEÑO AT BEDSIDE TO UPDATE PT AND S.O
[2024-06-24 09:38] LABS: HCV Ab Non Reactive (Non Reactive)
== END 2024-06-23 11:06 | disposition home or self-care (01) ==
PROVIDERS: Emergency Provider Student in an Organized Health Care Education/Training Program; PCP Internal Medicine Adolescent Medicine
DX: O20.9 Hemorrhage in early pregnancy, unspecified (principal); Z3A.14 14 weeks gestation of pregnancy
CPT/HCPCS: 76817; 80053; 81001; 84702; 84703; 85025; 86803; 86900; 86901; 87389; 99283

== ENCOUNTER 2024-06-25 13:35 | Outpatient (CLI) | payer OTHER, SELFPAY ==
--- NOTE | 2024-06-25 13:35 | US_ITS ---
PROCEDURE: US OB <= 14 WEEKS FETUS CLINICAL INDICATION: Bleeding in Early , stopped day before ultrasound COMPARISON: US US OB TRANSVAGINAL from 06/23/2024 FINDINGS: Transabdominal sonographic images of the pelvis were obtained. The following parameters are obtained: From her established due date she is 13weeks 0 days Viable fetus in the cephalic presentation with an anterior placenta grade 1. There is a placental Rios seen. A scar is seen in the lower uterine segment. heart rate: 147bpm bpm. Average ultrasound age 13 weeks 4 days BPD: 13weeks 5days HC: 13weeks 6days AC: 13weeks 1day FL: 13weeks 1day HC/AC: 1.34 FL/BPD: 0.47 FL/AC: 0.16 Growth percentile: 41 Amniotic fluid: Appears normal No obvious anomalies evident. IMPRESSION: 1. Viable fetus within the uterine cavity in the breech presentation with an anterior placenta grade 1. There is a placental Rios seen. 2. The fluid appears to be within normal limits. biometry is consistent with the dates. 3. No obvious cause for bleeding seen today. 4. Limited anatomical scan appears normal. Suggest repeat Claudine 20 weeks for complete anatomy. Dictated by: Ronny De León MD 06/26/2024 07:59 Ronny De León MD in [place] 06/26/2024 07:59
== END 2024-06-25 23:59 | disposition home or self-care (01) ==
LOC: RAD 13:35
PROVIDERS: PCP Internal Medicine Adolescent Medicine; Visit Provider Obstetrics & Gynecology
DX: O20.9 Hemorrhage in early pregnancy, unspecified (principal); Z3A.13 13 weeks gestation of pregnancy
CPT/HCPCS: 76801

== ENCOUNTER 2024-07-28 13:41 | Outpatient (CLI) | payer OTHER, SELFPAY ==
[2024-07-28 14:53] LABS: Basophils % 0.2 % (0.1-2.0); Eosinophils # 0.1 K/mm3 (0.0-0.4); Eosinophils % 0.5 % (0.1-12.0); Hematocrit 36.2 % (37.0-47.0); Hemoglobin 12.9 g/dL (12.2-16.2); Lymphocytes # 1.9 K/mm3 (0.7-4.5); Lymphocytes % 18.3 % (10-50); Mean Corpuscular HGB Conc 35.7 g/dL (31.8-35.4); Mean Corpuscular Hemoglobin 28.3 pg (27.0-31.2); Mean Corpuscular Volume 79.3 fl (81-99); Mean Platelet Volume 7.3 fl (7.4-10.4); Monocytes # 0.5 K/mm3 (0.1-1.0); Monocytes % 5.1 % (1.7-9.3); Neutrophils # 7.7 K/mm3 (1.8-7.8); Platelet Count 270 K/mm3 (142-424); Red Blood Count 4.57 M/mm3 (4.20-5.40); Red Cell Distribution Width 14.3 % (11.5-17.5); White Blood Count 10.1 K/mm3 (4.8-10.8)
[2024-07-28 15:39] LABS: Albumin Level 3.7 g/dl (3.5-5.0); Chloride 109 mmol/L (98-107); Potassium 3.9 mmoL/L (3.5-5.1); Sodium 137 mmol/L (136-145)
[2024-07-28 15:42] LABS: Alanine Aminotransferase 18 U/L (12-78); Alkaline Phosphatase 70 U/L (38-126); Anion Gap 8.9 mEq/L (5-15); Aspartate Amino Transferase 23 U/L (14-36); Bilirubin,Direct 0.1 mg/dl (0.0-0.4); Bilirubin,Indirect 0.3 mg/dL (0.0-0.9); Bilirubin,Total 0.4 mg/dl (0.2-1.3); Bilirubin,Unconjugated 0.3 mg/dL (0.0-1.1); Blood Urea Nitrogen 7 mg/dl (7-17); Carbon Dioxide 23 mmol/L (22.0-30.0); Cholesterol 211 mg/dl (140-200); Estimated Glomerular Filt Rate 125 ml/min (>60); GFR (African American) 151 ML/MIN (>60); Total Protein,Serum 6.3 g/dl (6.3-8.2); Triglycerides 177 mg/dl (30-150); VLDL Cholesterol 35 mg/dL (0-40)
[2024-07-28 15:43] LABS: Chol/HDL Ratio 3.8 (1-3.5); Glucose 90 mg/dl (74-100); HDL Cholesterol 55 mg/dl (40-60)
[2024-07-28 15:53] LABS: Direct LDL Cholesterol 122.75 mg/dL (100-129)
[2024-07-28 15:59] LABS: Free T4 (Free Thyroxine) 0.85 ng/dl (0.78-2.19)
[2024-07-28 16:13] LABS: Thyroid Stimulating Hormone 0.31 uIU/mL (0.465-4.68)
== END 2024-07-28 23:59 | disposition home or self-care (01) ==
LOC: LAB 13:44
PROVIDERS: PCP Nurse Practitioner Family; Visit Provider Nurse Practitioner
DX: R00.0 Tachycardia, unspecified (principal); R00.2 Palpitations
CPT/HCPCS: 36415; 80048; 80061; 80076; 84439; 84443; 85025; 93270

== ENCOUNTER 2024-08-01 20:19 | Emergency (ER) | payer OTHER, SELFPAY ==
[2024-08-01 20:21] VITALS: BP 128/77; PULSE 76; RESP 16; TEMP 36.6; O2SAT 98; BMI 32.1
--- NOTE | 2024-08-01 20:34 | PC.NURSE ---
Dr. Pedro felipe for ED doctor
--- NOTE | 2024-08-01 20:39 | HMH.EDGENADL ---
Discharge Plan Disposition Patient Disposition: Home, Self-Care Prescriptions Prescriptions: New nitrofurantoin monohyd/m-cryst 100 mg capsule 100 mg PO BID 5 Days Qty: 10 0RF Rx Instructions: must administer with a meal/food No Action amlodipine 5 mg tablet 5 mg PO DAILY 28-800 mg-mcg tablet PO sertraline 25 mg tablet 25 mg PO DAILY Patient Comments: TAKE 1 TABLET BY MOUTH ONCE DAILY Referrals Follow up/Referrals: Diann Vasquez DO [Staff Physician] - See instructions (call on sunday ) Chela Landry APRN [Primary Care Provider] - See instructions Clinical Impressions Clinical Impression: Threatened in second trimester, UTI (urinary tract infection) Print Language Print Language: Mongolian Discharge ED Provider: Evens [facility] Adult HPI General Chief complaint: Vaginal Bleeding Stated complaint: antepartum 18 wks vaginal bleeding Time Seen by Provider: 08/01/24 20:22 History of Present Illness HPI narrative: Patient is a 24-year-old G2, P1 at 18 weeks by second trimester ultrasound presents today with spotting. States this only occurs when she was urinating but she is certain that it was vaginal. Denies any heavy vaginal bleeding contractions loss of fluid etc. she has not yet felt baby moving. Denies any other fevers or chills or any other symptoms other than lower back discomfort. She is O+ from historical standpoint. Related Data Home Medications ?Medication ?Instructions ?Recorded ?Confirmed amlodipine 5 mg tablet 5 mg PO DAILY 05/08/24 07/28/24 vit no.133-ferrous tab PO 06/12/24 07/28/24 fumarate 28 mg-folic acid 800 mcg tablet () sertraline 25 mg tablet 25 mg PO DAILY 07/28/24 07/28/24 Previous Rx's ?Medication ?Instructions ?Recorded nitrofurantoin 100 mg PO BID 5 days #10 caps 08/01/24 monohydrate/macrocrystals 100 mg capsule Allergies Allergy/AdvReac Type Severity Reaction Status Date / Time amoxicillin AdvReac Mild Hives Verified 07/28/24 13:15 [facility] Disclaimer: The information contained in this section may have been updated after the patient was seen, as this information can be updated by other users. Medical History Screening for genetic disease carrier status + SMA carrier ([employer] carrier screen 06/12/24 ) Chlamydia infection affecting in first trimester History of induced hypertension Maternal obesity affecting , antepartum History of hypertension Surgical History History of delivery Family History Other No significant family history Social History Smoking Status: Unknown if ever smoked alcohol intake: never substance use type: denies use current occupational status: employed Travel in the last 8 weeks: None Other Medical History Have you received the Flu Vaccine for this season: No Have you received the Pneumonia Vaccine: No ROS Obtained: Yes All systems reviewed & no additional complaints except as documented Physical Exam General General appearance: alert Respiratory Respiratory exam: Present normal lung sounds bilaterally; Absent respiratory distress Cardiovascular Cardiovascular exam: Present regular rate and normal rhythm Abdominal Exam Abdominal exam: Present soft; Absent distention or tenderness Neurological Exam Neurological exam: Present alert and oriented X3 Medical Decision Making Medical Records Screening: Per USPSTF and CDC recommendations, given the prevalence of disease in our region, it is our hospital?s policy to screen for HIV and viral Hepatitis for all patients aged 18 and over and those with ongoing risk factors. Adams Inquiry Pt receiving controlled substance: No Vital Signs: 08/01/24 20:21 Temperature 97.9 F Temperature Source Tympanic Pulse Rate [Left] 76 Respiratory Rate 16 Blood Pressure [Right Arm] 128/77 Blood Pressure Mean [Right Arm] 94 02 Sat by Pulse Oximetry 98 Oxygen Delivery Method Room Air Lab Data Lab results reviewed: Yes I reviewed the patient's lab results. Lab Results 08/01/24 20:45: Urine Color Yellow, Urine Appearance Clear, Urine pH 6.5, Ur Specific [place] 1.025, Urine Protein Negative, Urine Glucose (UA) Negative, Urine Ketones Negative, Urine Blood Negative, Urine Nitrate Negative, Urine Bilirubin Negative, Urine Urobilinogen 1.0, Ur Leukocyte Esterase Trace, Urine RBC 5-10, Urine WBC 20-50, Ur Squamous Epith Cells 5-10, Amorphous Sediment 1+, Urine Bacteria 1+, Urine Mucus 1+ Orders (Tests/Meds): ED MEDICATIONS Generic Name Dose Route Start Last Admin Trade Name Freq PRN Reason Stop Dose Admin Nitrofurantoin Macrocrystals 100 mg 08/01/24 21:39 Nitrofurantoin 100mg Capsule PO 08/01/24 21:40 ONCE ONE ORDERS Category Date Time Status POCUS Point of Care (ER Only) Stat Exams 08/01/24 20:22 Ordered UA [Urinalysis and Microscopic] Stat Lab 08/01/24 20:45 Completed Urine Culture Stat Micro 08/01/24 20:45 Received Medical Decision Narrative: 24-year-old G2, P1 with above history and physical she is O+ no need to get a quantitative hCG has bedside ultrasound confirms single living IUP consistent with dates. She is hemodynamically stable and not concerned about significant blood loss. Abdominal exam is benign will check a urinalysis to rule out source of blood being from her urethra/UTI. I confirm with Dr. Vasquez that at this facility we do not send patients to OB triage less than 20 weeks and she is between 18-19 weeks depending on the measurement. Therefore she is previable and no other emergent interventions or monitoring are necessary. Will reassess after urinalysis is performed. Patient had trace leuk esterase had some white blood cells and bacteria and in the setting of noticing the blood when she urinates it is possible this is urinary tract infection we will go ahead and treat first dose of nitrofurantoin given in the emergency department and prescription sent she has been made aware to follow-up with OB call on Sunday for next available appointment. She was discharged in stable condition. Limited OB ultrasound Indication: Vaginal bleeding Identified structures: [-Uterus -Left adnexa -Right adnexa -Pouch of [place]] Findings: Uterus: Definitive IUP FHR: 135 Right adnexa: No free fluid Left adnexa: No free fluid Cul de sac: No free fluid Impression: Single living IUP with normal heart rate 19 weeks by biparietal diameter no evidence of any free fluid or obvious hemorrhage Images were saved to permanent archive The study was technically adequate CPT Transabdominal: 79092-84 This study was performed by me, and I personally interpreted all images/videos. Based on my clinical judgement, these images were adequate and did not necessitate further imaging. Critical Care Critical Care Time Critical Care Time: No
[2024-08-01 20:50] LABS: Microscopic, Urine URINE MICROSCOPIC (MICROSCOPIC)
[2024-08-01 20:51] LABS: Appearance,Urine CLEAR (Clear); Bilirubin,Urine Negative (Negative); Blood, Urine Negative (Negative); Color,Urine YELLOW (Yellow); Glucose,Urine (UA) Negative (Negative); Ketones,Urine Negative (Negative); Leukocyte Esterase,Urine TRACE (Negative); Nitrate,Urine Negative (Negative); PH,Urine 6.5 (5.0-8.5); Protein,Urine Negative (Negative); Specific Gravity, Urine 1.025 (1.005-1.030)
[2024-08-01 21:03] LABS: WBC,Urine 20-50 #/hpf (0-3)
[2024-08-01 21:04] LABS: Amorphous Sediment,Urine 1+ /lpf; Bacteria,Urine 1+ /lpf; Mucus,Urine 1+ /lpf
[2024-08-01] MEDS: NITROFURANTOIN 100MG CAPSULE 100 MG PO (21:47)
[2024-08-01 22:07] VITALS: BP 189/93; PULSE 59; RESP 17; TEMP 36.6; O2SAT 98
== END 2024-08-01 22:00 | disposition home or self-care (01) ==
PROVIDERS: Emergency Provider Student in an Organized Health Care Education/Training Program; PCP Nurse Practitioner Family
DX: N39.0 Urinary tract infection, site not specified (principal); O20.0 Threatened abortion; M54.50 Low back pain, unspecified
CPT/HCPCS: 81001; 87086; 99283

== ENCOUNTER 2024-08-14 07:51 | Outpatient (CLI) | payer OTHER, SELFPAY ==
--- NOTE | 2024-08-14 08:02 | CA_ITS ---
APPROVED REPORT EXAM: Comprehensive 2D, Doppler, and color-flow Echocardiogram Pest Locator: CLAUDE Sandoval, RVS Ht: 5 ft 6 in Wt: 202lbs BSA: 2.01 BP: 113/77 mmHg Indications: Abn EKG, Tachycardia, palpitations, HTN, 20 weeks 2D Dimensions Left Atrium 2.93 cm LA Volume 65.70 mL LA Volume Index 32.724336 mL/m2 (M/F) 16-34 M-Mode Dimensions RVDd 3.24 cm (0.9-2.6) LA Diam 2.98 cm (1.9-4.0) LVDd 4.71 cm (3.5-5.7) LVDs 3.32 cm (3.5-5.7) IVSd 0.91 cm (0.6-1.1) PWd 0.83 cm (0.6-1.1) EF (Teich) 58.50% EPSs 0.25 cm FS 31.00% EDV (Teich) 108.00 mL TAPSE 2.29 (<1.7) ESV (Teich) 44.80 mL LV Diastology E Decel Time 160 (160-240 msec) E/A Ratio 2.87 MED A' 6.00 cm/s LAT A' 9.40 cm/s Aortic Valve JAMES Index 1.25 cm2/m2 AoV Peak Cristopher. 147.0 (50-130 cm/s) AO Peak GR. 8.70 mmHg AO Mean GR. 4.40 (<5 mmHg) AO VTI 28.1 (18-25 cm) JAMES (VTI) 2.57 (2.5-4.5 cm2) Mitral Valve MV A Velocity 47.0 (40-130 cm/s) E/A Ratio 2.87 Pulmonary Valve PV Peak Velocity 95.0 (50-150 cm/s) Tricuspid Valve TR P. Velocity 227.00 cm/s RAP Estimate 10.00 mmHg RVSP 30.70 mmHg Left Ventricle The left ventricle is normal size. The left ventricular systolic function is normal. The left ventricular ejection fraction is within the normal range. There is normal left ventricular wall thickness. There is normal LV segmental wall motion. The left ventricular diastolic function is normal. LVEF is 55%. Right Ventricle The right ventricle is normal size. The right ventricular systolic function is normal. Atria The left atrium size is normal. The right atrium size is normal. There is no Doppler evidence of interatrial shunt. Aortic Valve The aortic valve opens well. There is no aortic valvular stenosis. No aortic regurgitation is present. Mitral Valve The mitral valve is normal in structure. No evidence of mitral valve stenosis. Trace mitral regurgitation. Tricuspid Valve Tricuspid valve is grossly normal in structure and function. Mild tricuspid regurgitation. RVSP is normal. Pulmonic Valve The pulmonary valve is normal in structure. Trace pulmonic regurgitation. Great Vessels The aortic root is normal in size. IVC is normal in size and collapses >50% with inspiration. Pericardium There is no pericardial effusion. Other Information Study Quality: Adequate Conclusion Normal biventricular systolic function. Mild TR. Electronically signed by : Debo Oliveros MD 08/26/2024 08:19:15
--- NOTE | 2024-08-14 08:32 | US_ITS ---
PROCEDURE: US OB /MATERNAL DETAIL CLINICAL INDICATION: 20 week + Anatomy Scan COMPARISON: US US OB TRANSVAGINAL from 06/23/2024 US US OB <= 14 WEEKS FETUS from 06/25/2024 FINDINGS: Transabdominal sonographic images of the pelvis were obtained. From her established due date she is 20 weeks 1 day. Single viable intrauterine gestation. Breech position. Placenta: Anteriorplacenta grade 1. There is an average amount of fluid. The cervix appears satisfactory. Closed and measuring 5.35 cm in length. Complete survey performed and was unremarkable on the submitted images as in PACS. No discrete anomalies identified on survey imaging by technologist. Active fetus. Three-vessel cord with satisfactory umbilical cord insertion. 4- chamber heart noted. Situs, aortic arch, LVOT, RVOT, three-vessel view appear normal. Survey of brain & ventricles Unremarkable. Cerebellum, thalamus, choroid plexus, cisterna magna appear normal. Face and neck survey unremarkable. Profile, nasion, lips and nose appeared normal. Diaphragm and chest views unremarkable. Abdomen: Both kidneys noted and unremarkable. Stomach and bladder noted and satisfactory. Spine: Survey of the spine satisfactory with no anomalies identified nor imaged. Cervical, thoracic, lower spine appear normal. Both arms and legs noted. Amniotic Fluid: Adequate. MVP 4.74 cm Measurements: Average ultrasound age 20weeks 4days. Estimated due date by ultrasound age 0512/28/2024. Estimated weight 354g BPD = 20weeks 1day HC = 20weeks 4days AC = 20weeks 1day FL = 21weeks 0 days Growth Percentile= 62 Heart Rate = 130bpm Cerebellum = 19weeks 6days Humerus = 21weeks HC/AC is 1.22 FL/BPD is 0.74 FL/AC is 0.23 IMPRESSION: 1. Viable fetus in the breech presentation with an anterior placenta grade 1. 2. The fluid is within normal limits, MVP 4.74 cm. 3. Anatomical scan appears normal. The heart views were incomplete due to position and would suggest repeat scan in 2-3 weeks. 4. biometry is consistent with the dates. Dictated by: Ronny De León MD 08/14/2024 13:51 Ronny De León MD in [facility] 08/14/2024 13:51
== END 2024-08-14 23:59 | disposition home or self-care (01) ==
LOC: RT 07:52
PROVIDERS: PCP Nurse Practitioner Family; Visit Provider Nurse Practitioner
DX: R00.0 Tachycardia, unspecified (principal); R00.2 Palpitations; Z36.3 Encounter for antenatal screening for malformations; O99.212 Obesity complicating pregnancy, second trimester; Z3A.20 20 weeks gestation of pregnancy; Z87.59 Personal history of other complications of pregnancy, childbirth and the puerperium; Z98.891 History of uterine scar from previous surgery
CPT/HCPCS: 76811; 93306

== ENCOUNTER 2024-09-04 23:20 | Emergency (ER) | payer OTHER, SELFPAY ==
[2024-09-04 23:22] VITALS: BP 128/83; PULSE 101; RESP 16; TEMP 37.2; O2SAT 98; BMI 33.9
--- NOTE | 2024-09-04 23:28 | ED_ITS ---
Discharge Plan Disposition Patient Disposition: Home, Self-Care Prescriptions Prescriptions: New ondansetron HCl 4 mg tablet 4 mg PO Q8H PRN (Reason: nausea and vomiting) 5 Days Qty: 30 0RF pyridoxine (vitamin B6) 25 mg tablet 25 mg PO TID PRN (Reason: nausea and vomiting) Qty: 90 0RF Unisom (doxylamine) 25 mg tablet 12.5 mg PO Q8 PRN (Reason: nausea and vomiting) Qty: 30 0RF nitrofurantoin macrocrystal 100 mg capsule 100 mg PO BID 5 Days Qty: 10 0RF Rx Instructions: must administer with a meal/food No Action amlodipine 5 mg tablet 5 mg PO DAILY 28-800 mg-mcg tablet PO sertraline 50 mg tablet 50 mg PO DAILY Patient Comments: TAKE 1 TABLET BY MOUTH ONCE DAILY Referrals Follow up/Referrals: Chela Landry APRN [Primary Care Provider] - See instructions Activity Restrictions/Add. Instructions Additional Instructions/Restrictions: Try Unisom and B6 if you continue to be nauseous. If that does not work, I also sent a prescription for Zofran. Please take Macrobid as prescribed for treatment of asymptomatic bacteriuria in . Please follow-up with your [employer] and primary care provider. Please return to the emergency department if you develop any new or worsening symptoms or become concerned for your health. Clinical Impressions Clinical Impression: Nausea and vomiting during Instructions Patient Instructions: DI for Diarrhea and Traveler's Diarrhea -- Adult, DI for Diarrhea and Traveler's Diarrhea -- Child, DI for Nausea -- Adult, DI for Nausea -- Child Print Language Print Language: Welsh Discharge ED Provider: Gama Lopes General Adult HPI General Chief complaint: Nausea/Vomiting/Diarrhea Stated complaint: vomiting, 24 wks antepartum Time Seen by Provider: 09/04/24 23:25 History of Present Illness HPI narrative: 24-year-old female, G2, P1 at 24 weeks presents for nausea and vomiting. She reports has been ongoing for the last 2 days. Denies any other symptoms such as fever abdominal pain urinary symptoms. Reports no other recent illness. Reports that her has been uncomplicated to this point. She does not have any antiemetics at home. Related Data Home Medications ?Medication ?Instructions ?Recorded ?Confirmed amlodipine 5 mg tablet 5 mg PO DAILY 05/08/24 08/14/24 vit no.133-ferrous tab PO 06/12/24 08/14/24 fumarate 28 mg-folic acid 800 mcg tablet () sertraline 50 mg tablet 50 mg PO DAILY 08/14/24 08/14/24 Previous Rx's ?Medication ?Instructions ?Recorded doxylamine succinate 25 mg tablet 12.5 mg (1/2 x 25 mg) PO Q8 PRN 09/05/24 (Unisom (doxylamine)) nausea and vomiting #30 tabs nitrofurantoin macrocrystal 100 mg 100 mg PO BID 5 days #10 caps 09/05/24 capsule ondansetron HCl 4 mg tablet 4 mg PO Q8H PRN nausea and 09/05/24 vomiting 5 days #30 tabs pyridoxine (vitamin B6) 25 mg 25 mg PO TID PRN nausea and 09/05/24 tablet vomiting #90 tabs Allergies Allergy/AdvReac Type Severity Reaction Status Date / Time amoxicillin AdvReac Mild Hives Verified 08/14/24 10:06 [facility] Disclaimer: The information contained in this section may have been updated after the patient was seen, as this information can be updated by other users. Medical History Screening for genetic disease carrier status + SMA carrier ([employer] carrier screen 06/12/24 ) Chlamydia infection affecting in first trimester History of induced hypertension Maternal obesity affecting , antepartum History of hypertension Surgical History History of delivery Family History Other No significant family history Social History Smoking Status: Former smoker alcohol intake: never substance use type: denies use current occupational status: employed Travel in the last 8 weeks: None Have you lived/traveled outside [place] in past 30 days?: No Contact w/someone who lives/traveled outside [place] past 30 days?: No Exposure to someone with infectious disease in past 14 days?: No Do you have a fever (greater than 100.4 F or 38 C)?: No Have you tested positive for COVID-19: No Exposed to someone with COVID-19 in past 14 days?: No Do you have a sore throat?: No Do you have a cough?: No Do you have any weakness?: No Do you have any diarrhea?: No Are you experiencing any unusual bleeding?: No Do you have any muscle aches/pain?: No Do you have any abdominal pain?: No Are you experiencing loss of taste or smell?: No Other Medical History Have you received the Flu Vaccine for this season: No Have you received the Pneumonia Vaccine: No ROS Obtained: Yes All systems reviewed & no additional complaints except as documented Physical Exam General General appearance: alert and in no apparent distress Head Head exam: atraumatic and normocephalic Eye Eye exam: Present normal appearance, PERRL and EOMI ENT ENT exam: Present normal oropharynx and normal external ear exam Neck Neck exam: Present normal inspection and full ROM Chest Chest inspection: Present normal inspection and symmetric chest wall rise; Absent tenderness Respiratory Respiratory exam: Present normal lung sounds bilaterally; Absent respiratory distress Cardiovascular Cardiovascular exam: Present regular rate and normal rhythm Abdominal Exam Abdominal exam: Present soft and distention; Absent tenderness or guarding Extremities Exam Extremities exam: Present normal inspection; Absent edema or joint swelling Back Exam Back exam: Present normal inspection; Absent tenderness Neurological Exam Neurological exam: Present alert and oriented X3; Absent motor sensory deficit Psychiatric Psychiatric exam: Present normal affect and normal mood Skin Skin exam: Present warm, dry and normal color Lymphatic Lymphatic Findings: no adenopathy Medical Decision Making Medical Records Medical records reviewed: Yes I reviewed the patient's medical records. Screening: Per USPSTF and CDC recommendations, given the prevalence of disease in our region, it is our hospital?s policy to screen for HIV and viral Hepatitis for all patients aged 18 and over and those with ongoing risk factors. Adams Inquiry Pt receiving controlled substance: No Adams was queried for this patient: No Vital Signs: 09/04/24 23:22 Temperature 99 F Temperature Source Oral Pulse Rate [Right Radial] 101 H Respiratory Rate 16 Blood Pressure [Right Arm] 128/83 Blood Pressure Mean [Right Arm] 98 Blood Pressure Source [Right Arm] Automatic Cuff Blood Pressure Position [Right Arm] Supine 02 Sat by Pulse Oximetry 98 Oxygen Delivery Method Room Air Lab Data Lab results reviewed: Yes I reviewed the patient's lab results. Lab Results 09/04/24 23:30: WBC 12.4 H, RBC 4.51, Hgb 12.4, Hct 36.4 L, MCV 80.7 L, MCH 27.5, MCHC 34.1, RDW 12.6, Plt Count 268, MPV 9.0, Neut % (Auto) 80.7 H, Lymph % (Auto) 12.8, Hayes % (Auto) 5.5, Eos % (Auto) 0.5, Baso % (Auto) 0.1, Neut # (Auto) 10.0 H, Lymph # (Auto) 1.6, Hayes # (Auto) 0.7, Eos # (Auto) 0.1, Baso # (Auto) 0.0, Sodium 136, Potassium 3.9, Chloride 106, Carbon Dioxide 22, Anion Gap 11.9, BUN 8, Creatinine 0.60, Estimated Creat Clear 221, Estimated GFR 125, Est GFR ( Amer) 151, Glucose 93, Calcium 8.9, Magnesium 1.6, Total Bilirubin 0.5, AST 25, ALT 19, Alkaline Phosphatase 93, Total Protein 7.0, Albumin 3.8, Globulin 3.2, Albumin/Globulin Ratio 1.2 09/04/24 23:47: Urine Color Yellow, Urine Appearance Clear, Urine pH 6.0, Ur Specific Ballard >= 1.030, Urine Protein Trace, Urine Glucose (UA) Negative, Urine Ketones 1+, Urine Blood Negative, Urine Nitrate Negative, Urine Bilirubin 1+ A, Urine Urobilinogen 1.0, Ur Leukocyte Esterase Trace, Urine WBC 3-5, Ur Squamous Epith Cells 5-10, Urine Bacteria 1+, Urine Mucus 2+ 09/04/24 23:30 09/04/24 23:30 Orders (Tests/Meds): ED MEDICATIONS Generic Name Dose Route Start Last Admin Trade Name Freq PRN Reason Stop Dose Admin Nitrofurantoin Macrocrystals 100 mg 09/05/24 00:33 Nitrofurantoin 100mg Capsule PO 09/05/24 00:34 ONCE ONE Discontinued Medications Generic Name Dose Route Start Last Admin Trade Name Freq PRN Reason Stop Dose Admin Lactated Ringer's 1,000 mls @ 999 mls/hr 09/04/24 23:30 09/04/24 23:36 Lactated Ringer's 1000 Ml Bag IV 09/05/24 00:30 999 mls/hr .Q1H1M MIKE Administration Ondansetron HCl 4 mg 09/04/24 23:26 09/04/24 23:35 Ondansetron 4mg/2ml Vial IV 09/04/24 23:27 4 mg ONCE ONE Administration ORDERS Category Date Time Status CBC w/Auto Diff [Complete Blood Count Auto Diff] Stat Lab 09/04/24 23:30 Completed CMP [Comprehensive Metabolic Panel] Stat Lab 09/04/24 23:30 Completed MAG [Magnesium] Stat Lab 09/04/24 23:30 Completed UA [Urinalysis and Microscopic] Stat Lab 09/04/24 23:47 Completed Medical Decision Narrative: 25-year-old female, G2, P1 at 24 weeks presents for 2 days of nausea and vomiting. History was obtained via interactive discussion with patient, chart review. On arrival, patient is [afebrile, hemodynamically stable, satting appropriately, alert, oriented x4, GCS 15], moving all extremities spontaneously. Full physical exam performed and significant for no abdominal tenderness, no significant physical exam abnormalities. Differential includes but is not limited to nausea vomiting , hyperemesis gravidarum, UTI, gastroenteritis. Patient was given 1 L IV fluids, IV Zofran for symptomatic management and correction of underlying abnormalities. Workup initiated including CBC CMP mag UA. On re-evaluation, patient [remains afebrile, HD stable.] She reports symptomatic improvement. Laboratory workup independently interpreted by me and significant for no significant electrolyte derangement. Urine does show asymptomatic bacteriuria which we will treat with Macrobid Given patient history, exam and workup, patient's presentation most likely represents nausea vomiting and asymptomatic bacteriuria. She was discharged with prescription for Unisom and B6 as well as Zofran and Macrobid. Return precautions given.. Procedures Risk/Benefits of Procedure(s) Were Explained: Yes Critical Care Critical Care Time Critical Care Time: No
[2024-09-04] MEDS: ONDANSETRON 4MG/2ML VIAL 4 MG IV (23:35)
[2024-09-04] MEDS: LACTATED RINGERS 1000ML 1,000 ML 999 ML IV (23:36)
[2024-09-04 23:43] LABS: Basophils % 0.1 % (0.1-2.0); Eosinophils # 0.1 K/mm3 (0.0-0.4); Eosinophils % 0.5 % (0.1-12.0); Hematocrit 36.4 % (37.0-47.0); Hemoglobin 12.4 g/dL (12.2-16.2); Lymphocytes # 1.6 K/mm3 (0.7-4.5); Lymphocytes % 12.8 % (10-50); Mean Corpuscular HGB Conc 34.1 g/dL (31.8-35.4); Mean Corpuscular Hemoglobin 27.5 pg (27.0-31.2); Mean Corpuscular Volume 80.7 fl (81-99); Monocytes # 0.7 K/mm3 (0.1-1.0); Monocytes % 5.5 % (1.7-9.3); Neutrophils % 80.7 % (37.0-80.0); Platelet Count 268 K/mm3 (142-424); Red Blood Count 4.51 M/mm3 (4.20-5.40); Red Cell Distribution Width 12.6 % (11.5-17.5); White Blood Count 12.4 K/mm3 (4.8-10.8)
[2024-09-04 23:45] LABS: Albumin Level 3.8 g/dl (3.5-5.0); Chloride 106 mmol/L (98-107)
[2024-09-04 23:46] LABS: Potassium 3.9 mmoL/L (3.5-5.1); Sodium 136 mmol/L (136-145)
[2024-09-04 23:48] LABS: Alanine Aminotransferase 19 U/L (12-78); Albumin/Globulin Ratio 1.2 (1.1-1.8); Alkaline Phosphatase 93 U/L (38-126); Anion Gap 11.9 mEq/L (5-15); Aspartate Amino Transferase 25 U/L (14-36); Bilirubin,Total 0.5 mg/dl (0.2-1.3); Blood Urea Nitrogen 8 mg/dl (7-17); Carbon Dioxide 22 mmol/L (22.0-30.0); Creatinine Clearance Estimated 221 mL/min (50-200); Estimated Glomerular Filt Rate 125 ml/min (>60); GFR (African American) 151 ML/MIN (>60); Globulin 3.2 g/dL (1.3-3.2)
[2024-09-04 23:49] LABS: Calcium 8.9 mg/dl (8.4-10.2); Glucose 93 mg/dl (74-100); Magnesium 1.6 mg/dl (1.6-2.3)
[2024-09-04 23:51] LABS: Microscopic, Urine URINE MICROSCOPIC (MICROSCOPIC)
[2024-09-05 00:04] LABS: Appearance,Urine CLEAR (Clear); Blood, Urine Negative (Negative); Color,Urine YELLOW (Yellow); Glucose,Urine (UA) Negative (Negative); Ketones,Urine 1+ (Negative); Leukocyte Esterase,Urine TRACE (Negative); Nitrate,Urine Negative (Negative); Protein,Urine TRACE (Negative); Specific Gravity, Urine >= 1.030 (1.005-1.030)
[2024-09-05 00:24] LABS: Bilirubin,Urine 1+ (Negative)
[2024-09-05 00:31] LABS: Bacteria,Urine 1+ /lpf; Mucus,Urine 2+ /lpf
--- NOTE | 2024-09-05 00:43 | PC.NURSE ---
heart tones @ 158bpm
[2024-09-05 00:45] VITALS: BP 126/87; PULSE 100; RESP 18; TEMP 36.7; O2SAT 97
[2024-09-05] MEDS: NITROFURANTOIN 100MG CAPSULE 100 MG PO (00:47)
== END 2024-09-05 00:54 | disposition home or self-care (01) ==
PROVIDERS: Emergency Provider Emergency Medicine; PCP Nurse Practitioner Family
DX: O21.9 Vomiting of pregnancy, unspecified (principal); Z3A.24 24 weeks gestation of pregnancy
CPT/HCPCS: 80053; 81001; 83735; 85025; 96361; 96374; 99283; J2405; J7120